=== PATIENT | male | born 1940 | race Caucasian/White ===

== ENCOUNTER 2016-11-27 12:59 | Emergency (ER) | payer OTHER, MEDICARE ==
[2016-11-27 13:13] VITALS: RESP 18
--- NOTE | 2016-11-27 14:59 | EDPHY ---
H & P Smoking Status: Light smoker Time Seen by Provider: 11/27/16 14:02 HPI/ROS: CHIEF COMPLAINT: left wrist pain HISTORY OF PRESENT ILLNESS: 76-year-old male presents emergency department complaining of left wrist pain. Patient slipped on the ice and fell on outstretched hand 1 week ago, he was seen by a another provider for his chronic back pain yesterday who told him he should have it checked out and get an x- ray. Patient reports pain of 4/10, worse with movement. He denies numbness or tingling to this hand, he is [id number]. He denies previous injury to this wrist. Patient denies head strike, no elbow pain or shoulder pain, and he denies other complaints. REVIEW OF SYSTEMS: A comprehensive 10 point review of systems is otherwise negative aside from elements mentioned in the history of present illness. (Carmita Johnson) Physical Exam: GEN: Awake, alert, oriented, no acute distress RESP: nl resp effort MSK: Left wrist with mild swelling, ecchymosis, diffuse tenderness to palpation , good radial motor and sensory, 2+ radial pulses, sensation intact to light touch, cap refill less than 2 seconds SKIN: No break in skin (Carmita Johnson) Constitutional: Initial Vital Signs Temperature (C) 36.8 C 11/27/16 13:09 Heart Rate 71 11/27/16 13:09 Respiratory Rate 18 11/27/16 13:09 Blood Pressure 100/76 11/27/16 13:09 O2 Sat (%) 93 11/27/16 13:09 O2 Delivery Mode Room Air Allergies/Adverse Reactions: No Allergies [NKA] Allergy (Verified 11/27/16 13:08) Home Medications: Medication Instructions Recorded Ascorbic Acid [Vitamin C 500 mg 500 mg PO DAILY16 09/18/15 (*)] Calcium Carbonate [Oyster Shell 500 mg PO DAILY16 09/18/15 Calcium 500 mg (*)] Cholecalciferol Vit D3 [Vitamin D3 1,000 units PO DAILY16 09/18/15 (*)] Cyanocobalamin [Vitamin B12 (*)] 100 mcg PO DAILY16 09/18/15 Gabapentin [Neurontin 100 MG (*)] 100 mg PO DAILY16 09/18/15 Herbals/Supplements -Info Only 1 ea PO DAILY16 09/18/15 Hydrochlorothiazide [HCTZ (*)] 25 mg PO DAILY16 09/18/15 Lisinopril [Zestril 40 mg (*)] 40 mg PO DAILY16 09/18/15 Metoprolol Succinate Xr [Toprol Xl 100 mg PO DAILY16 09/18/15 100 mg (*)] Omeprazole [Prilosec] 40 mg PO DAILY16 09/18/15 amLODIPine BESYLATE [Norvasc 5 mg 7.5 mg PO DAILY16 09/18/15 (*)] Amoxicillin/Clavulanate Pot 875 mg PO BID #14 tab 09/22/15 [Augmentin 875Mg] oxyCODONE/APAP 5/325 [Percocet 1 - 2 tab PO Q6H PRN #20 tab 10/02/15 5/325 (*)] MDM/Departure - MDM Diagnostics: Left wrist x-ray independently reviewed by me- Intra-articular comminuted left distal radius fracture with left ulnar styloid fx. (Carmita Johnson) Procedures: A volar Ortho Glass splint was applied. After application of the splint, I returned and re-examined the patient. The splint was adequately immobilizing the joint. The patients circulation and sensation were intact distal to the splint. (Carmita Johnson) ED Course/Re-evaluation: I did not see this patient while he was in the emergency department. However his care was discussed with the nurse practitioner while the patient was in the department. I agree with treatment plan and management (Chuck Chun) - Depart Disposition: Home, Routine, Self-Care Clinical Impression: Distal radius fracture, left Qualifiers: Encounter type: initial encounter Fracture type: closed Fracture morphology: other intra-articular Qualifier Code: (S52.572A) Other intraarticular fracture of lower end of left radius, initial encounter for closed fracture Fracture of ulnar styloid Qualifiers: Encounter type: initial encounter Fracture type: closed Fracture alignment: displaced Laterality: left Qualifier Code: (S52.612A) Displaced fracture of left ulna styloid process, initial encounter for closed fracture Condition: Good Instructions: Wrist Fracture in Adults (ED), Splint Care (ED) Additional Instructions: Rest, ice, elevate, take 650 mg of Tylenol every 6-8 hours as needed for pain for 3-5 days, call the orthopedist 1st thing Tuesday morning to schedule an appointment to be seen in the next 3-5 days. Return to the emergency department for any numbness or tingling to your hand, pain that is not controlled, any new symptoms or concerns. Referrals: Rohith Rahman MD [Medical Doctor] - As per Instructions (Orthopedist on-call)
--- NOTE | 2016-11-27 15:11 | DX ---
Left Wrist 4 Views including a Navicular View. Clinical Indications: Pain following trauma in a 76-year-old male who fell one week ago.. Findings: There is a comminuted and mildly displaced intra-articular fracture of the distal left radi us. There is an associated ulnar styloid fracture. Degenerative osteoarthritic changes are noted most severe at the base of the first metacarpal and involving the radiocarpal articulation. Diffuse osseo us demineralization is noted. Impression: Comminuted and mildly displaced intra-articular fracture of the left radius with associat ed ulnar styloid fracture.
[2016-11-27 15:15] VITALS: BP 106/78; PULSE 72; TEMP 97.9; O2SAT 94
== END 2016-11-27 15:15 | disposition home or self-care (01) ==
PROC: 2W3DX1Z Immobilization of Left Lower Arm using Splint (ICD-10-PCS; principal; 2016-11-27)
DX: S52.572A Other intraarticular fracture of lower end of left radius, initial encounter for closed fracture (principal); S52.612A Displaced fracture of left ulna styloid process, initial encounter for closed fracture; F17.200 Nicotine dependence, unspecified, uncomplicated; W00.0XXA Fall on same level due to ice and snow, initial encounter; Y93.89 Activity, other specified

== ENCOUNTER → 2016-12-05 | Outpatient (CLI) | payer OTHER, MEDICARE ==
--- NOTE | 2016-12-05 12:04 | DX ---
Right hip, 2 views. HISTORY: Right hip pain. COMPARISON STUDY: October 02, 2015 FINDINGS: Moderate right and severe left hip osteoarthritis appear similar to previous study. No fracture. Diffuse underlying osteopenia. IMPRESSION: 1. Moderate right and severe left hip osteoarthritis.
--- NOTE | 2016-12-05 14:12 | MR ---
MRI of the Lumbar Spine (Without Contrast) Clinical Indications: Low back pain. Technique: Sagittal and axial T1 and T2 MRI sequences of the lumbar spine without contrast. Comparison Examination: September 19, 2015. Findings: Moderate compression deformity of the superior endplate of the L2 vertebral body is new fro m prior examination, associated with subcortical bone marrow edema. Severe compression fracture of th e L4 vertebral body is again noted with progression of vertebral body height loss from prior study. N o additional new compression deformities identified. L1-L2: Disk desiccation and mild diffuse annular bulging without discrete disk prolapse or neural imp ingement. Moderate left neural foraminal stenosis. L2-L3: Disk desiccation and broad-based annular bulging without dominant disk herniation. Moderate le ft neural foraminal stenosis. L3-L4: Disk desiccation and broad-based annular bulging contributing to moderate acquired central can al stenosis. Neural foramina are also stenotic bilaterally, severely on the left and moderately on th e right. Moderate bilateral facet degenerative hypertrophy. L4-L5: Disk desiccation and annular bulging without discrete disk prolapse. Foramina appear stenotic bilaterally, minimally on the left and severely on the right. L5-S1: No disk herniation or stenosis. Impressions: 1. New moderate compression fracture of the superior endplate of the L2 vertebral body from 2014 with mild associated bone marrow edema. 2. Progressive collapse of severe L4 compression deformity. 3. Multilevel degenerative disk disease. Relatively severe right neural foraminal stenosis at L4-L5. Moderate acquired central canal stenosis at L3-L4 with bilateral neural foraminal stenosis.
== END ==
LOC: FIMAGING 10:50
PROVIDERS: ATTEND Physical Medicine & Rehabilitation
DX: M54.5 Low back pain (principal); S32.020A Wedge compression fracture of second lumbar vertebra, initial encounter for closed fracture; M51.36 Other intervertebral disc degeneration, lumbar region; M16.11 Unilateral primary osteoarthritis, right hip; M16.12 Unilateral primary osteoarthritis, left hip

== ENCOUNTER → 2017-01-29 | Outpatient (CLI) | payer OTHER, MEDICARE | LOC: FIMAGING 09:52 | PROVIDERS: ATTEND Physician Assistant Surgical | DX: M76.01 Gluteal tendinitis, right hip (principal); M24.151 Other articular cartilage disorders, right hip; M16.0 Bilateral primary osteoarthritis of hip; M48.56XA Collapsed vertebra, not elsewhere classified, lumbar region, initial encounter for fracture ==

== ENCOUNTER 2017-03-04 09:39 | Inpatient (IN) | payer OTHER, MEDICARE ==
--- NOTE | 2017-03-04 10:00 | EDPHY ---
H & P Stated Complaint: ROLLED OUT OF BED, L SIDED PAIN Source: Patient, EMS Exam Limitations: No limitations - Personal History Current Tetanus/Diphtheria Vaccine: Unsure - Medical/Surgical History Hx Asthma: No Hx Chronic Respiratory Disease: No Hx Diabetes: No Hx Cardiac Disease: Yes Hx Renal Disease: No Hx Cirrhosis: No Hx Alcoholism: Yes Hx HIV/AIDS: No Hx Splenectomy or Spleen Trauma: No Other PMH: PMH: HTN. PSH: - Social History Smoking Status: Current every day smoker Time Seen by Provider: 03/04/17 09:54 HPI/ROS: CHIEF COMPLAINT: fall out of bed HISTORY OF PRESENT ILLNESS: 76-year-old male presents emergency department by ambulance reporting last night around midnight he rolled out of his bed and was pinned between his bed and the wall laying on the edge of the metal bed frame. Patient reports his but was barely touching the ground and his back was wedged against the metal frame. Patient states he called for help for 8 hours when staff at the independent living facility heard him and called 911. Patient reports left-sided back pain and rib pain, pain with deep breaths. He denies chest pain, shortness of breath, abdominal pain. Patient has abrasions and hematoma to his left hand, denies pain with range of motion of hand or wrist. Patient states he urinated at home prior to coming to the emergency department without difficulty. He denies neck pain, no head strike. REVIEW OF SYSTEMS: A comprehensive 10 point review of systems is otherwise negative aside from elements mentioned in the history of present illness. (Carmita Johnson) - Physical Exam Exam: General Appearance: Alert, no distress, talking appropriately, comfortable. Head: Atraumatic without scalp tenderness or obvious injury, small abrasion to forehead Eyes: Pupils equal, round, reactive to light, EOMI, no trauma, no injection. Ears: Clear bilaterally, no perforation, no hemotympanum Nose: Atraumatic, no rhinorrhea, no septal hematoma Neck: The cervical spine is non-tender and there is no pain or neurologic deficits with active range of motion. Cardiovascular: Heart is regular rate and rhythm. Good capillary refill all extremities. Chest: Left lateral chest wall with ecchymosis and tenderness to palpation mid axillary Gastrointestinal: Soft, non-tender, non-distended. No rebound, guarding, or peritoneal signs. There is no evidence of external or internal trauma. Back:There is no midline thoracic or lumbar spine or paraspinal tenderness. Extremities: left forearm, wrist and hand with ecchymosis, multiple small skin tears. Full range of motion of wrist, 2+ radial pulses. Left lateral knee with ecchymosis, nontender, full range of motion, 2+ pedal pulses All extremities are non-tender to palpation without obvious deformity. There is full active range of motion of the joints. Neurological: The patient has normal DTRs and non-focal Cranial nerves, motor, sensory, and cerebellar exam Skin: Thin 1 cm wide area of erythema with intermittent areas of abrasion from left axilla to groin. Multiple small skin tears to left hand and forearm ( Carmita Johnson) Constitutional: Initial Vital Signs Temperature (C) 36.8 C 03/04/17 09:46 Heart Rate 74 03/04/17 09:46 Respiratory Rate 16 03/04/17 09:46 Blood Pressure 154/70 H 03/04/17 09:46 O2 Sat (%) 91 L 03/04/17 09:46 O2 Delivery Mode Room Air O2 (L/minute) 1 Allergies/Adverse Reactions: No Allergies [NKA] Allergy (Verified 11/27/16 13:08) Home Medications: Medication Instructions Recorded Ascorbic Acid [Vitamin C 500 mg 500 mg PO HS 09/18/15 (*)] Calcium Carbonate [Oyster Shell 500 mg PO HS 09/18/15 Calcium 500 mg (*)] Cholecalciferol Vit D3 [Vitamin D3 1,000 units PO HS 09/18/15 (*)] Cyanocobalamin [Vitamin B12 (*)] 100 mcg PO HS 09/18/15 Gabapentin [Neurontin 100 MG (*)] 100 mg PO HS 09/18/15 Hydrochlorothiazide [HCTZ (*)] 25 mg PO DAILY16 09/18/15 Lisinopril [Zestril 40 mg (*)] 40 mg PO HS 09/18/15 Metoprolol Succinate Xr [Toprol Xl 100 mg PO HS 09/18/15 100 mg (*)] Omeprazole [Prilosec] 40 mg PO HS 09/18/15 amLODIPine BESYLATE [Norvasc 5 mg 7.5 mg PO HS 09/18/15 (*)] Medical Decision Making - Diagnostics Imaging: I viewed and interpreted images myself ED Course/Re-evaluation: 76-year-old male presents emergency department by EMS after being wedged between his metal bed frame and the wall for 8 hours after rolling out of his bed last night. On arrival to the emergency department the patient is awake, alert and oriented, denies head strike, remembers the entire accident. He complains of left-sided rib pain, pain with movement, pain with deep breaths. IV established, CBC, chemistry panel, CPK, urinalysis and chest x-ray with left rib series ordered. 1 L of normal saline was given. Patient has a CPK of 680, CBC and electrolytes are unremarkable, creatinine is 0.9. Chest x-ray shows for nondisplaced left lateral rib fractures at 7 through 10. Patient will be admitted to the hospitalist for observation. Patient's room air oxygen saturation is 91%. Urinalysis is pending, we will trend his CPK. 1120am- trauma surgeon on-call Dr. Anita Ferguson was consulted. She will see the patient. (Carmita Johnson) Other Provider: This patient was evaluated and managed by the nurse practitioner. I have reviewed the chart and agree with the findings and plan of care as documented. I also interviewed and examined the patient. He has a history of alcohol abuse , ruled out of bed, and became pinned between furniture and the wall. He was essentially suspended for several hours. On examination he is awake and alert. Head is normocephalic atraumatic. Neck is nontender to palpation over the cervical spine. Thoracolumbar spine nontender to palpation. Has tenderness over the left anteromedial ribcage, no crepitus. Lung sounds are clear and equal bilaterally. Abdomen is soft and nontender. He has significant bruising throughout his body. He is moving all 4 extremities easily and equally. Sensation is intact to light touch. I reviewed laboratory studies. I agree with plan for admission. (Sahra Ingram) - Data Points Laboratory Results: Laboratory Results 03/04/17 09:51 03/04/17 09:51 Medications Given: Discontinued Medications Diphtheria/Tetanus/Acell Pertussis (Boostrix) 0.5 ml IM .ONCE ONE Stop: 03/04/17 10:52 Last Admin: 03/04/17 11:15 Dose: 0.5 ml Sodium Chloride (Ns) 1,000 mls @ 0 mls/hr IV ONCE ONE PRN Reason: Wide Open Stop: 03/04/17 10:51 Last Admin: 03/04/17 10:55 Dose: 1,000 mls Sodium Chloride (Ns) 1,000 mls @ 3,000 mls/hr IV ONCE ONE Stop: 03/04/17 12:37 Last Admin: 03/04/17 13:47 Dose: 1,000 mls Thiamine HCl 500 mg/ Sodium (Chloride) 105 mls @ 210 mls/hr IV DAILY BECCA Stop: 03/05/17 09:29 Last Admin: 03/05/17 08:22 Dose: 105 mls Morphine Sulfate (Morphine) 4 mg IVP EDNOW ONE Stop: 03/04/17 11:24 Last Admin: 03/04/17 13:32 Dose: Not Given Morphine Sulfate (Morphine) 4 mg IVP EDNOW ONE Stop: 03/04/17 11:24 Last Admin: 03/04/17 13:32 Dose: Not Given Departure - Departure Disposition: [facility] Inpatient Acute Clinical Impression: Elevated CK Multiple fractures of ribs of left side Qualifiers: Encounter type: initial encounter Fracture type: closed Qualified Code(s): S22.42XA - Multiple fractures of ribs, left side, initial encounter for closed fracture Condition: Fair
[2017-03-04 10:03] LABS: % IMMATURE GRANULYOCYTES 0.5 % (0.0-1.1); ABSOLUTE IMMATURE GRANULOCYTES 0.05 10^3/uL (0.00-0.10); ADD DIFF? NO; ADD MORPH? NO; ADD SCAN? NO; ATYPICAL LYMPHOCYTE FLAG 0 (0-99); FRAGMENT RBC FLAG 0 (0-99); HEMATOCRIT 44.4 % (40.0-51.0); HEMOGLOBIN 15.3 g/dL (13.7-17.5); LEFT SHIFT FLG 0 (0-99); LIPEMIA HEMOLYSIS FLAG 90 (0-99); MEAN CELL HEMOGLOBIN 34.7 pg (27.9-34.1); MEAN CELL HEMOGLOBIN CONCENTR. 34.5 g/dL (32.4-36.7); MEAN CELL VOLUME 100.7 fL (81.5-99.8); MEAN PLATELET VOLUME 9.4 fL (8.7-11.7); PLATELET CLUMPS FLAG 0 (0-99); PLATELET COUNT 128 10^3/uL (150-400); RED BLOOD CELL COUNT 4.41 10^6/uL (4.40-6.38); RED CELL DISTRIBUTION WIDTH 14.7 % (11.5-15.2)
[2017-03-04] MEDS ORDERED: NS 1,000 ML IV ONE ×2 (10:50→12:18)
[2017-03-04] MEDS ORDERED: TDAP ADULT 0.5 ML INJ (BOOSTRIX) IM ONE (10:51)
[2017-03-04 11:13] LABS: ANION GAP 13 mEq/L (8-16); CALCIUM 9.4 mg/dL (8.5-10.4); CARBON DIOXIDE 21 mEq/l (22-31); CHLORIDE 103 mEq/L (97-110); CREATININE 0.9 mg/dL (0.7-1.3); GLOMERULAR FILTRATION RATE > 60; GLUCOSE 89 mg/dL (70-100); POTASSIUM 4.3 mEq/L (3.5-5.2); SODIUM 137 mEq/L (134-144)
[2017-03-04 11:22] LABS: CK-MB INTERPRETATION NEGATIVE (NEGATIVE); CREATINE KINASE-MB FRACTION 5.39 ng/mL (0-3.19)
[2017-03-04 11:23] LABS: COLOR YELLOW; LEUKOCYTE ESTERASE,URINE NEGATIVE (NEGATIVE); NITRITE,URINE NEGATIVE (NEGATIVE)
[2017-03-04 11:28] LABS: MUCUS TRACE /lpf (NONE-1+)
[2017-03-04 11:29] LABS: WBC,URINE NONE SEEN /hpf (0-3)
[2017-03-04] MEDS ORDERED: ONDANSETRON 4 MG/2 ML VIAL IVP PRN (12:35)
[2017-03-04] MEDS ORDERED: ALBUTEROL 3 ML DEYVIAL IH PRN (12:35)
[2017-03-04] MEDS ORDERED: ONDANSETRON DISINTEGRATING 4 MG TAB PO PRN (12:35)
[2017-03-04] MEDS ORDERED: ACETAMINOPHEN 325 MG TAB PO PRN (12:35)
[2017-03-04] MEDS ORDERED: NS 1,000 ML IV SCH (12:45)
--- NOTE | 2017-03-04 13:04 | GCON ---
[f rep st] CONSULTATION REFERRING PHYSICIAN: Sahra Ingram MD CHIEF COMPLAINT: Fall. HISTORY OF PRESENT ILLNESS: The patient is a 76-year-old man who normally drinks a bottle and a latrice f of wine prior to going to bed. Last night, he fell asleep and rolled over and was pinned between the bed and the window sill. He never actually fell, however, he was entrapped and was unable to ge t himself out. He periodically called for help and approximately 8 hours later a neighbor heard him and EMS was called. He does not remember rolling into the position as he was sleeping when this willoughby ppened. He denies any issues with alcohol withdrawal. He is not interested in alcohol cessation. PAST MEDICAL HISTORY: Neuropathy. PAST SURGICAL HISTORY: Eye surgery, lens replacement and amputation of toe due to osteomyelitis. MEDICATIONS: Reviewed in [employer]. ALLERGIES: No known drug allergies. SOCIAL HISTORY: He lives at home alone. He smokes 1/2 pack of cigarettes a day x50 years. He drin ks approximately a bottle and a half of red wine per night. He works in telephone sales. FAMILY HISTORY: His father had CHF and possible thyroid cancer. His mother had dementia. REVIEW OF SYSTEMS: He bruises easily. He is unstable. He does complain of some hearing loss and s ome difficulty with vision. Otherwise, 10-point review of systems negative. PHYSICAL EXAMINATION: VITALS: Reviewed and stable. GENERAL: A pleasant man sitting up in bed. H e is well nourished and well groomed. HEENT: Normocephalic. No gross hearing deficit. His pupils are equal, round, reactive to light and accommodation. No midface instability. He has poor dentit ion and there are no intraoral lesions. There is no otorrhea and no rhinorrhea. NECK: No cervical spine tenderness. LUNGS: Clear to auscultation bilaterally. He is tender on the left chest. The re is no distinct ecchymosis. CARDIAC: Regular rate. ABDOMEN: Bowel sounds present. Soft, nonte nder. MUSCULOSKELETAL: 5/5 strength upper and lower extremities. NEURO: Cranial nerves 2-12 gurmeet sly intact. SKIN: He has multiple ecchymotic lesions over his arm. He does have some ecchymosis o n his left knee. RESULTS REVIEWED: I reviewed the results of his chest x-ray and he had 4 rib fractures that are non displaced on the left side without pneumothorax. His CK is also elevated. IMPRESSION AND PLAN: The patient is a 76-year-old man who sustained 4 rib fractures and was pinned between his bed and the window sill last night. He will receive IV hydration. He is not interested in alcohol cessation and so he will be drinking alcohol during the hospital stay. Pulmonary toilet . Physical therapy, occupational therapy, speech language therapy have been ordered. He normally u ses a cane for assistance at home. Trauma will continue to follow. Repeat chest x-ray tomorrow to make sure that there has not been a development of a hemo or pneumothorax. /[id number]/MODL
--- NOTE | 2017-03-04 13:44 | CPEKG ---
Heart Rate: 63 RR Interval: 952 P-R Interval: 188 QRSD Interval: 100 QT Interval: 436 QTC Interval: 447 P [place]: 56 QRS [place]: 96 T Wave [place]: 15 EKG Severity - OTHERWISE NORMAL ECG - EKG Impression: SINUS RHYTHM EKG Impression: RIGHT AXIS DEVIATION Electronically Signed By: Hernandez Mckeon 05-Mar-2017 10:37:53
[2017-03-04] MEDS: THIAMINE HCL 500 MG in NS 100 ML IV SCH (13:46)
[2017-03-04] MEDS: LIDOCAINE 5% 1 EA PATCH TD SCH (13:48)
--- NOTE | 2017-03-04 13:49 | GHP ---
[f rep st] HISTORY AND PHYSICAL DATE OF ADMISSION: 03/04/2017 CHIEF COMPLAINT: Rolled out of his bed and was stuck. HISTORY OF PRESENT ILLNESS: The patient is a 76-year-old male with a history of peripheral neuropathy, hypertension, and significant alcohol use, who was brought to the emergency department via ambulance after he rolled out of his bed and was pinned between his bed and the wall, lying on the edge of his metal bed frame. Prior to going to bed at night, he had approximately a bottle and a half of white wine. He rolled off the bed and got wedged in a space where he could not get out. He was there for approximately 8 hours. He yelled for help. His neighbor called the facility management, who subsequently called EMT. On admission to the emergency room, he reported that he had some left- sided back pain as well as rib pain, pain with deep breaths. He denies any chest pain, shortness of breath, abdominal pain. He had a chest x-ray performed in the emergency room, which noted nondisplaced fractures of the antral lateral left 7th through 10th ribs with associated atelectasis suspected at the left base. During my interview, he is overall feeling fine. He prefers not to get out of bed due to the rib fractures. He has had no significant changes in his vision, some loss in his hearing. His weight overall has remained stable. No difficulty with urination or constipation. PAST MEDICAL HISTORY: 1. Peripheral neuropathy. 2. Hypertension. 3. Macular degeneration. 4. GERD. 5. Osteomyelitis of right 2nd toe. 6. Compression fracture of L4. 7. 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 8. Chronic hyponatremia. 9. Normocytic anemia. PAST SURGICAL HISTORY: 1. Partial amputation of 2nd right toe due to osteomyelitis. 2. Cataract surgery. 3. Lens replacement. SOCIAL HISTORY: He has been a smoker for 50 years and smokes half a pack a day. He drinks alcohol daily. He has never had any signs or symptoms of alcohol withdrawal or any type of seizures. He lives alone. He works in telephone sales. When I asked him why he drinks so much wine, he said because he likes the flavor of it. FAMILY HISTORY: Parents are . His father had complications of heart failure and thyroid cancer. His mother had dementia. ALLERGIES: No known allergies. HOME MEDICATIONS: Have not been reconciled yet, but in the computer it is noted that he takes Percocet 1-2 tabs q.4 hours p.r.n., Norvasc 7.5 mg daily, Prilosec 40 mg daily, Toprol-XL 100 mg daily, lisinopril 40 mg daily, hydrochlorothiazide 25 mg daily, herbal supplements 1 tab daily, Neurontin 100 mg daily, vitamin B12 1000 mcg daily, vitamin D3 1000 units daily, calcium 500 mg daily, vitamin C 500 mg daily. REVIEW OF SYSTEM: A 10-point review of systems was performed, was negative other than pertinent positives in HPI and past medical history. PHYSICAL EXAM: GENERAL: The patient is a 76-year-old male who appears in very poor health. VITAL SIGNS: Blood pressure is 129/80, heart rate is 64, respiratory rate is 16, O2 saturation on room air 98%, temperature is 36.8 Celsius. HEENT: Eyes: Pupils are equal and reactive. EOMs are intact. ENT: He has normal ears, hearing intact. He has poor dentition. Oral airway is very dry. NECK: Trachea is midline. CARDIOVASCULAR: He has a regular rate and rhythm. No murmurs, rubs, or gallops are appreciated. CHEST: He has normal respiratory effort, but very diminished from the mid left lobe down. ABDOMEN: Soft, nontender. No rebound or guarding. SKIN: Evaluated his back. There are no skin breakdowns. On his extremities, his left forearm, wrist and hand with multiple skin tears and ecchymosis, with good range of motion. His left lateral knee area has ecchymosis and a small skin tear. He has multiple discolorations on both arms. MUSCULOSKELETAL: He has equal upper extremity strength. NEUROLOGIC: Alert and oriented to person, place, time, and situation. Cranial nerves are intact. PSYCHIATRIC: He appears to have normal judgment, insight, and normal memory. The patient was seen and evaluated with trauma surgeon, Dr. Ferguson. LABORATORY DATA: A CBC was performed, white blood cell count is 10.12, hemoglobin 15.3, hematocrit of 44.4, MCV 100.7, platelet count of 128. Chemistry shows a sodium of 137, potassium 4.3, chloride of 103, CO2 of 21, BUN of 13, creatinine 0.9. CPK 689. Urinalysis shows trace ketones and 2+ blood. IMAGING: Chest x-ray was performed, which noted a nondisplaced fracture antral lateral left 7th through 10th ribs, with associated atelectasis at the left base. ASSESSMENT/PLAN: 1. Mild rhabdomyolysis: Patient looks clinically dry. Will hydrate him overnight and monitor his kidney function closely. 2. Nondisplaced left rib fractures 7 through 10. Is at risk for pneumonia. Will have him do the IS hourly. Will order nebulizer treatments. Will encourage mobility. 3. Multiple abrasions on his left groin, left knee area, and the left hand. Will ask for a Wound Care consult. 4. Alcohol use and abuse: The patient denies any seizures or withdrawal symptoms. He does not wish to abstain from alcohol and is asking for it at this time. Will order it for lunch and dinner. In addition, we will place him on IV thiamine for the next 2 days, and then oral thiamine. Will initiate folic acid, and a multivitamin. Monitor for any signs or symptoms of withdrawal. 5. Nicotine dependence: He prefers no nicotine patch. 6. Thrombocytopenia, secondary to his alcohol use. Will monitor. 7. DVT prophylaxis: High risk. Will place him on low molecular weight heparin , as well as knee high JOSEFINA hose. 8. Code status: He would like CPR and no intubation. 9. Length of stay: He will require likely greater than a 2 midnight stay due to the above. /[id number]/MODL MTDD
[2017-03-04] MEDS: FOLIC ACID 1 MG TAB PO SCH (13:50)
[2017-03-04] MEDS: WHITE WINE 120 ML BOTTLE PO SCH ×2 (13:57→18:15)
[2017-03-04] MEDS: IPRATROPIUM/ALBUTEROL 3 ML DEYVIAL IH SCH ×2 (15:54→20:31)
--- NOTE | 2017-03-04 17:38 | WOCRNPDOC ---
NADER Advanced Assessment Note - Skin Integrity Problem, Advanced Assess Left Flank Pressure Injury Dressing Type: Open to Air Exudate Amount: None Analilia Wound Tissue: Erythema, Non-blanching Analilia Wound Swelling: Moderate Wound Bed Color: Black, [place], Purple, Yellow Wound Bed Constitution: Smooth Tissue Wound Edges: Attached Site Odor: None Site Measurement - Head-to-Toe Length X Width X Depth (cm): 41x1x0.3 (DTI) with a larger area of stage 1 (15 cm wide) surrounding the DTI. Pressure Injury Stage: Deep Tissue Injury (DTI) (Device related) Pressure Injury Present on Admit: Yes Skin Integrity Problem Comment: Patient found down at home and this portion of his abdomen and chest were pinned against the metal frame of his bed. This is wound is already evolving and the middle is begining to necrose and will evolve into an open wound. The tissue on the superior and inferior edges are less damaged and should resolve without opening as they are Stage 1. Advised patient follow up at the wound healing center for management of this wound post discharge. Wound care will round again on 03/08. Left Lateral Knee Pressure Injury Dressing Type: Open to Air Site Measurement - Head-to-Toe Length X Width X Depth (cm): [id number] Pressure Injury Stage: Stage 1 (Device related) Pressure Injury Present on Admit: Yes Skin Integrity Problem Comment: Tissue mildly swollen. Intact, non blanching. Wound developed as a result of ischemia due to his position for 8 hours. Left Lateral Elbow Pressure Injury Dressing Type: Open to Air Site Measurement - Head-to-Toe Length X Width X Depth (cm): 4x5x0 Pressure Injury Stage: Deep Tissue Injury (DTI) (Device related) Pressure Injury Present on Admit: Yes Skin Integrity Problem Comment: Pressure injury from position while "down". Right Sacrum Pressure Injury Dressing Type: Open to Air Site Measurement - Head-to-Toe Length X Width X Depth (cm): 1x1x0 Pressure Injury Stage: Stage 1 Pressure Injury Present on Admit: Yes Left Lateral Ankle Pressure Injury Dressing Type: Open to Air Site Measurement - Head-to-Toe Length X Width X Depth (cm): 1x1.8x0 Pressure Injury Stage: Deep Tissue Injury (DTI) Skin Integrity Problem Comment: Pressure injury likely also from position when pinned beside bed at home. Bilateral heels blanching. No pressure wound on head/ neck.
[2017-03-04 20:19] LABS: CK-MB INTERPRETATION NEGATIVE (NEGATIVE)
[2017-03-04 20:20] LABS: CREATINE KINASE-MB FRACTION 4.15 ng/mL (0-3.19)
[2017-03-04] MEDS: CHOLECALCIFEROL VIT D3 1,000 UNITS TAB PO SCH (20:57)
[2017-03-04] MEDS: CALCIUM CARBONATE 500 MG TAB PO SCH (20:57)
[2017-03-04] MEDS: CYANO/VITAMIN B12 100 MCG TAB PO SCH (20:58)
[2017-03-04] MEDS: ASCORBIC ACID 500 MG TAB PO SCH (20:58)
[2017-03-04] MEDS: LISINOPRIL 40 MG TAB PO SCH (20:58)
[2017-03-04] MEDS: GABAPENTIN 100 MG CAP PO SCH (20:58)
[2017-03-04] MEDS: METOPROLOL SUCCINATE XR 100 MG TAB PO SCH (20:58)
[2017-03-04] MEDS: amLODIPine BESYLATE 5 MG TAB PO SCH (20:59)
[2017-03-04] MEDS ORDERED: NON-FORMULARY NEW DRUG (Omeprazole [Prilosec] 40 MG) PO SCH (21:00)
[2017-03-04] MEDS: PATCH REMOVAL 1 EA PATCH TD SCH (21:57)
[2017-03-05 05:35] LABS: % IMMATURE GRANULYOCYTES 0.3 % (0.0-1.1); ABSOLUTE IMMATURE GRANULOCYTES 0.02 10^3/uL (0.00-0.10); ADD DIFF? NO; ADD MORPH? NO; ADD SCAN? NO; ATYPICAL LYMPHOCYTE FLAG 0 (0-99); FRAGMENT RBC FLAG 0 (0-99); HEMATOCRIT 36.7 % (40.0-51.0); HEMOGLOBIN 12.3 g/dL (13.7-17.5); LEFT SHIFT FLG 0 (0-99); LIPEMIA HEMOLYSIS FLAG 80 (0-99); MEAN CELL HEMOGLOBIN 34.7 pg (27.9-34.1); MEAN CELL HEMOGLOBIN CONCENTR. 33.5 g/dL (32.4-36.7); MEAN CELL VOLUME 103.7 fL (81.5-99.8); MEAN PLATELET VOLUME 9.9 fL (8.7-11.7); PLATELET CLUMPS FLAG 0 (0-99); PLATELET COUNT 91 10^3/uL (150-400); RED BLOOD CELL COUNT 3.54 10^6/uL (4.40-6.38); RED CELL DISTRIBUTION WIDTH 14.8 % (11.5-15.2)
[2017-03-05 05:53] LABS: ALANINE AMINOTRANSFERASE 36 IU/L (21-72); ALBUMIN 2.3 g/dL (3.5-5.0); ALKALINE PHOSPHATASE 53 IU/L (38-126); ANION GAP 1 mEq/L (8-16); ASPARTATE AMINOTRANSFERASE 42 IU/L (17-59); BILIRUBIN,TOTAL 0.9 mg/dL (0.1-1.4); CALCIUM 8.4 mg/dL (8.5-10.4); CARBON DIOXIDE 28 mEq/l (22-31); CHLORIDE 107 mEq/L (97-110); CREATININE 0.7 mg/dL (0.7-1.3); GLOMERULAR FILTRATION RATE > 60; GLUCOSE 94 mg/dL (70-100); MAGNESIUM 1.4 mg/dL (1.6-2.3); POTASSIUM 4.1 mEq/L (3.5-5.2); SODIUM 136 mEq/L (134-144); TOTAL PROTEIN 4.6 g/dL (6.3-8.2)
[2017-03-05 05:59] LABS: CREATINE KINASE-MB FRACTION 2.16 ng/mL (0-3.19)
[2017-03-05] MEDS: IPRATROPIUM/ALBUTEROL 3 ML DEYVIAL IH SCH ×4 (06:03→23:06)
[2017-03-05 06:35] LABS: CK-MB INTERPRETATION NEGATIVE (NEGATIVE)
[2017-03-05] MEDS: FOLIC ACID 1 MG TAB PO SCH (08:22)
[2017-03-05] MEDS: THIAMINE HCL 500 MG in NS 100 ML IV SCH (08:22)
[2017-03-05] MEDS: MULTIVITAMINS 1 EACH TAB PO SCH (08:22)
[2017-03-05] MEDS: LIDOCAINE 5% 1 EA PATCH TD SCH (08:23)
[2017-03-05] MEDS: ENOXAPARIN 40 MG/0.4 ML SYR SC SCH ×2 (08:24→16:26)
--- NOTE | 2017-03-05 11:17 | HOSPPROG ---
Hospitalist Progress Note Assessment/Plan: DIAGNOSES: -Gait instability, multifactorial -Acute rhabdomyolysis from pressure -Complex mix of pressure skin skin soft tissue injuries along with abrasions and ecchymoses along the left side of his body and in the groin area -Acute alcohol intoxication -Suspected vitamin deficiencies in this patient is clearly with moderate malnutrition -Alcoholism -COPD PLANS: -continue wound care -Continue fall risk precautions and physical occupational therapy -Thiamin replacement -Monitor for potential alcohol withdrawal -I spent some time with the patient today counseling him on the acute chronic affects of alcohol on his body and his life in general and recommended that he do what he can to cut back though he is not willing to commit quitting at this time - DVT prophylaxis SUBJECTIVE: still quite sore particularly on the left side of his chest and left abdominal wall No nausea, is eating well No respiratory symptoms Did ambulate with therapist today, does have some gait instability and needs assistance for ambulation OBJECTIVE Vitals reviewed: stable without fever Exam: alert oriented No signs of alcohol withdrawal syndrome skin warm dry color ok; there is no sign of infection at any of his acute skin lesions or wounds resps not labored lungs clear BSs heart regular abd soft nondistended nontender, bowel sounds present limbs warm, no edema iv site ok Objective: Vital Signs Temp Pulse Resp BP Pulse Ox 36.9 C 76 17 149/91 H 96 03/05/17 07:50 03/05/17 07:50 03/05/17 07:50 03/05/17 07:50 03/05/17 07:50 Laboratory Results 03/05/17 05:03 03/05/17 05:03 03/04/17 03/05/17 03/06/17 06:59 06:59 06:59 Intake Total 0555 Output Total 175 150 Balance 2700 -150 ICD10 Worksheet Patient Problems: Problems Problem Status Onset Elevated CK Acute Multiple fractures of ribs of left side Acute Osteomyelitis Acute
--- NOTE | 2017-03-05 13:03 | TRAUMAPN ---
Assessment/Plan: 76yo M HD#2 s/p fall where he was trapped for 8 hours c L sided soft tissue injury and associated rib fx - Neuro: pain controlled. Neuro intact - Pulm: de-sats on RA. L chest tender but appropriate. Didnt want to use the IS with me today as it is "too big" Needs aggressive pulm toilet. - CV: HDS - Abd: soft, ND, nontender. Reg diet, tolerating well - Renal: voiding, UOP adequate. CK trending down. Will cont to trend - Dispo: PT/OT, EtOH counseling. Rib fracture protocol. Aggressive IS. Subjective: Pain controlled. Doesnt want to use his IS Objective: Vital Signs Temp Pulse Resp BP Pulse Ox 36.9 C 76 17 149/91 H 96 03/05/17 07:50 03/05/17 07:50 03/05/17 07:50 03/05/17 07:50 03/05/17 07:50 Laboratory Results 03/05/17 05:03 03/05/17 05:03 03/04/17 03/05/17 03/06/17 05:59 05:59 05:59 Intake Total 2875 Output Total 175 150 Balance 2700 -150 - C-Spine Clearance Cervical Spine Cleared: Yes Physical Exam - Physical Exam General Appearance: WD/WN, alert, no apparent distress EENT: PERRL/EOMI Neck: non-tender, full range of motion Respiratory: other (L chest tender, no crepitus. Adequate air movement with respirations ) Cardiac/Chest: normal peripheral pulses, regular rate, rhythm Abdomen: normal bowel sounds, non-tender
[2017-03-05] MEDS: WHITE WINE 120 ML BOTTLE PO SCH ×2 (13:43→18:00)
[2017-03-05] MEDS: PANTOPRAZOLE SODIUM 40 MG TAB PO SCH ×2 (13:43→19:57)
[2017-03-05] MEDS: METOPROLOL SUCCINATE XR 100 MG TAB PO SCH (19:58)
[2017-03-05] MEDS: GABAPENTIN 100 MG CAP PO SCH (19:58)
[2017-03-05] MEDS: CHOLECALCIFEROL VIT D3 1,000 UNITS TAB PO SCH (19:58)
[2017-03-05] MEDS: CALCIUM CARBONATE 500 MG TAB PO SCH (19:58)
[2017-03-05] MEDS: amLODIPine BESYLATE 5 MG TAB PO SCH (19:59)
[2017-03-05] MEDS: LISINOPRIL 40 MG TAB PO SCH (19:59)
[2017-03-05] MEDS: ASCORBIC ACID 500 MG TAB PO SCH (19:59)
[2017-03-05] MEDS: CYANO/VITAMIN B12 100 MCG TAB PO SCH (19:59)
[2017-03-05] MEDS: PATCH REMOVAL 1 EA PATCH TD SCH (20:01)
[2017-03-06] MEDS: IPRATROPIUM/ALBUTEROL 3 ML DEYVIAL IH SCH ×4 (05:25→19:28)
--- NOTE | 2017-03-06 08:56 | SOAPPROG ---
SOAP Progress Note Assessment/Plan: Assessment: Plan: Subjective: vss, af labs all ok, hct down, but doesn't appear to be bleeding anywhere lungs clear. no need to follow cpk's [place]. discharge when functioning independantly- pt lives at home by himself. Objective: Vital Signs Temp Pulse Resp BP Pulse Ox 36.8 C 57 L 16 137/83 H 95 03/06/17 08:00 03/06/17 08:00 03/06/17 08:00 03/06/17 08:00 03/06/17 08:00 Laboratory Results 03/05/17 05:03 03/05/17 05:03 03/05/17 03/06/17 03/07/17 05:59 05:59 05:59 Intake Total 2875 1750 Output Total 175 1330 150 Balance 2700 420 -150 ICD10 Worksheet Patient Problems: Problems Problem Status Onset Elevated CK Acute Multiple fractures of ribs of left side Acute Osteomyelitis Acute
[2017-03-06] MEDS: ENOXAPARIN 40 MG/0.4 ML SYR SC SCH (09:40)
[2017-03-06] MEDS: FOLIC ACID 1 MG TAB PO SCH (09:41)
[2017-03-06] MEDS: THIAMINE HCL 100 MG TAB PO SCH (09:41)
[2017-03-06] MEDS: MULTIVITAMINS 1 EACH TAB PO SCH (09:41)
[2017-03-06] MEDS: LIDOCAINE 5% 1 EA PATCH TD SCH (09:42)
[2017-03-06] MEDS: WHITE WINE 120 ML BOTTLE PO SCH ×2 (10:11→18:20)
--- NOTE | 2017-03-06 10:18 | HOSPPROG ---
Hospitalist Progress Note Assessment/Plan: DIAGNOSES: -Gait instability, multifactorial, with alcohol and nutrition affects and generalized weakness and deconditioning prominent -Acute rhabdomyolysis from pressure -Complex mix of pressure skin skin soft tissue injuries along with abrasions and ecchymoses along the left side of his body and in the groin area -Acute alcohol intoxication -Suspected vitamin deficiencies in this patient is clearly with moderate malnutrition -Alcoholism, Unwilling to consider stopping alcohol -COPD He is getting up to walk but is extremely weak and unable to sit up by himself. He requires assistance and walker for walking. He is eating little and sleeping quite a bit. Need to get him up into the chair more and walking more today. There is no sign of alcohol withdrawal PLANS: -continue wound care -Continue fall risk precautions and physical occupational therapy -Thiamin replacement -Monitor for potential alcohol withdrawal - DVT prophylaxis SUBJECTIVE: Less painful today Still quite weak and unable to get up from a supine position without assistance. Eating OBJECTIVE Vitals reviewed: stable without fever Exam: alert oriented No tremor confusion No focal weakness No signs of alcohol withdrawal syndrome skin warm dry color ok; no sign of infection at any of his acute skin lesions or wounds resps not labored lungs clear BSs heart regular abd soft nondistended nontender, bowel sounds present limbs warm, no edema iv site ok Objective: Vital Signs Temp Pulse Resp BP Pulse Ox 36.8 C 57 L 16 137/83 H 95 03/06/17 08:00 03/06/17 08:00 03/06/17 08:00 03/06/17 08:00 03/06/17 08:00 Laboratory Results 03/05/17 05:03 03/05/17 05:03 03/05/17 03/06/17 03/07/17 06:59 06:59 06:59 Intake Total 2875 1750 Output Total 175 1330 150 Balance 2700 420 -150 ICD10 Worksheet Patient Problems: Problems Problem Status Onset Elevated CK Acute Multiple fractures of ribs of left side Acute Osteomyelitis Acute
[2017-03-06] MEDS: CHOLECALCIFEROL VIT D3 1,000 UNITS TAB PO SCH (21:18)
[2017-03-06] MEDS: amLODIPine BESYLATE 5 MG TAB PO SCH (21:18)
[2017-03-06] MEDS: ASCORBIC ACID 500 MG TAB PO SCH (21:19)
[2017-03-06] MEDS: CYANO/VITAMIN B12 100 MCG TAB PO SCH (21:19)
[2017-03-06] MEDS: CALCIUM CARBONATE 500 MG TAB PO SCH (21:19)
[2017-03-06] MEDS: PANTOPRAZOLE SODIUM 40 MG TAB PO SCH (21:19)
[2017-03-06] MEDS: GABAPENTIN 100 MG CAP PO SCH (21:20)
[2017-03-06] MEDS: METOPROLOL SUCCINATE XR 100 MG TAB PO SCH (21:20)
[2017-03-06] MEDS: LISINOPRIL 40 MG TAB PO SCH (21:20)
[2017-03-06] MEDS: PATCH REMOVAL 1 EA PATCH TD SCH (21:21)
[2017-03-07] MEDS: IPRATROPIUM/ALBUTEROL 3 ML DEYVIAL IH SCH ×4 (05:09→21:09)
[2017-03-07] MEDS: THIAMINE HCL 100 MG TAB PO SCH (08:27)
[2017-03-07] MEDS: MULTIVITAMINS 1 EACH TAB PO SCH (08:27)
[2017-03-07] MEDS: ENOXAPARIN 40 MG/0.4 ML SYR SC SCH (08:27)
[2017-03-07] MEDS: FOLIC ACID 1 MG TAB PO SCH (08:27)
[2017-03-07] MEDS: LIDOCAINE 5% 1 EA PATCH TD SCH (08:29)
--- NOTE | 2017-03-07 08:45 | SOAPPROG ---
SOAP Progress Note Assessment/Plan: Assessment/Plan: 76 Y M EtOH, stuck btwn bed and wall x 7-8 hours. Rhabdomyolysis. Deconditioned. Multiple abrasions and contusions. CK improving. Renal function ok. Continue PT/OT. Seen and examined with Dr. Capone. S: No new complaints/aches/pains. O: gen: alert nad no wob, good fremitus rrr abd soft ext wwp, +ecchymosis. 03/07/17 08:40 Objective: Vital Signs Temp Pulse Resp BP Pulse Ox 36.6 C 55 L 16 152/88 H 92 03/07/17 07:50 03/07/17 07:50 03/07/17 07:50 03/07/17 07:50 03/07/17 07:50 Laboratory Results 03/05/17 05:03 03/05/17 05:03 03/06/17 03/07/17 03/08/17 05:59 05:59 05:59 Intake Total 1750 Output Total 1330 690 150 Balance 670 -006 -150 ICD10 Worksheet Patient Problems: Problems Problem Status Onset Elevated CK Acute Multiple fractures of ribs of left side Acute Osteomyelitis Acute
[2017-03-07] MEDS: WHITE WINE 120 ML BOTTLE PO SCH ×2 (09:30→17:32)
--- NOTE | 2017-03-07 10:52 | SOAPPROG ---
SOAP Progress Note Assessment/Plan: Assessment: alert/ stable/ doing ok/ afebrile sp multiple rib fxs bs equal/ cxr stable yesterday abd soft/ no new sx Plan:continue per IM plans/ placement issues ? 03/07/17 10:50 Objective: Vital Signs Temp Pulse Resp BP Pulse Ox 36.6 C 62 12 152/88 H 96 03/07/17 07:50 03/07/17 10:41 03/07/17 10:41 03/07/17 07:50 03/07/17 10:41 Laboratory Results 03/05/17 05:03 03/05/17 05:03 03/06/17 03/07/17 03/08/17 05:59 05:59 05:59 Intake Total 1750 250 Output Total 1330 690 400 Balance 420 -951 -150 ICD10 Worksheet Patient Problems: Problems Problem Status Onset Elevated CK Acute Multiple fractures of ribs of left side Acute Osteomyelitis Acute
--- NOTE | 2017-03-07 13:27 | HOSPPROG ---
Hospitalist Progress Note Assessment/Plan: DIAGNOSES: -Gait instability, multifactorial, with alcohol and nutrition affects and generalized weakness and deconditioning prominent -Acute rhabdomyolysis from pressure -Complex mix of pressure skin skin soft tissue injuries along with abrasions and ecchymoses along the left side of his body and in the groin area -Acute alcohol intoxication -Suspected vitamin deficiencies in this patient is clearly with moderate malnutrition -Alcoholism, Unwilling to consider stopping alcohol -COPD I discussed his situation at length with him. He is unsteady enough that I think another day here would be useful in terms of his safety. I have recommended either home PT OT or going to our fall prevention program, and he is quite reluctant to consider these or any other similar measures despite my efforts to sway him. I also discussed the impact of alcohol on his balance and his risks of injury from future falls. He is not at all willing to consider stopping or curtailing alcohol use at this time. PLANS: -continue wound care -Continue fall risk precautions and physical / occupational therapy -Thiamin replacement -DVT prophylaxis SUBJECTIVE: feels a bit stronger, still with significant balance issues walking but getting closer to his baseline which involves some instability of gait; did better w transfers today eating ok OBJECTIVE Vitals reviewed: stable without fever Exam: alert oriented No tremor confusion No focal weakness No signs of alcohol withdrawal syndrome skin warm dry color ok; no sign of infection at any of his acute skin lesions or wounds resps not labored lungs clear BSs heart regular abd soft nondistended nontender, bowel sounds present limbs warm, no edema iv site ok Objective: Vital Signs Temp Pulse Resp BP Pulse Ox 36.6 C 62 12 152/88 H 96 03/07/17 07:50 03/07/17 10:41 03/07/17 10:41 03/07/17 07:50 03/07/17 10:41 Laboratory Results 03/05/17 05:03 03/05/17 05:03 03/06/17 03/07/17 03/08/17 06:59 06:59 06:59 Intake Total 1750 250 Output Total 1330 690 400 Balance 078 -362 -075 ICD10 Worksheet Patient Problems: Problems Problem Status Onset Elevated CK Acute Multiple fractures of ribs of left side Acute Osteomyelitis Acute
[2017-03-07] MEDS: GABAPENTIN 100 MG CAP PO SCH (20:50)
[2017-03-07] MEDS: PANTOPRAZOLE SODIUM 40 MG TAB PO SCH (20:50)
[2017-03-07] MEDS: CHOLECALCIFEROL VIT D3 1,000 UNITS TAB PO SCH (20:51)
[2017-03-07] MEDS: CYANO/VITAMIN B12 100 MCG TAB PO SCH (20:51)
[2017-03-07] MEDS: amLODIPine BESYLATE 5 MG TAB PO SCH (20:51)
[2017-03-07] MEDS: CALCIUM CARBONATE 500 MG TAB PO SCH (20:52)
[2017-03-07] MEDS: LISINOPRIL 40 MG TAB PO SCH (20:52)
[2017-03-07] MEDS: METOPROLOL SUCCINATE XR 100 MG TAB PO SCH (20:52)
[2017-03-07] MEDS: ASCORBIC ACID 500 MG TAB PO SCH (20:52)
[2017-03-07] MEDS: PATCH REMOVAL 1 EA PATCH TD SCH (20:56)
[2017-03-08 00:22] VITALS: RESP 16
[2017-03-08] MEDS: IPRATROPIUM/ALBUTEROL 3 ML DEYVIAL IH SCH ×3 (06:06→15:28)
[2017-03-08 08:02] VITALS: BP 157/83; PULSE 61; TEMP 97.9; O2SAT 85
[2017-03-08] MEDS: THIAMINE HCL 100 MG TAB PO SCH (08:48)
[2017-03-08] MEDS: MULTIVITAMINS 1 EACH TAB PO SCH (08:48)
[2017-03-08] MEDS: FOLIC ACID 1 MG TAB PO SCH (08:48)
[2017-03-08] MEDS: WHITE WINE 120 ML BOTTLE PO SCH (08:57)
[2017-03-08] MEDS: LIDOCAINE 5% 1 EA PATCH TD SCH (08:58)
[2017-03-08] MEDS: ENOXAPARIN 40 MG/0.4 ML SYR SC SCH (10:14)
--- NOTE | 2017-03-08 10:55 | WOCRNPDOC ---
WOCRN Advanced Assessment Note - Skin Integrity Problem, Advanced Assess Left Flank Pressure Injury Dressing Type: Open to Air Exudate Amount: None Exudate Characteristic(s): None Katherine Wound Tissue: Non-blanching, Painful/Tender Wound Bed Color: Black, Red Wound Bed Constitution: Stable Eschar Site Odor: None Site Measurement - Head-to-Toe Length X Width X Depth (cm): 20cmx0.4cmx0.1cm Pressure Injury Stage: Stage 1, Unstageable Pressure Injury Present on Admit: Yes Skin Integrity Problem Comment: Linear, larger area of non-blanching erythema w / area of stable eschar noted medially (2.5cmx0.2cm). Wound measuring significantly smaller than previous assessment, indicating that wound is resolving. Site was RAILROAD HAND, per patient request. He does not feel that he need a dressing to this site. Discussed possible complications that could ensue as this wound evolves, such as site opening up or becoming infected, and patient was advised to consult his PCP if any complications arise. Report given to marine engineering teacher Carina. Left Lateral Knee Pressure Injury Dressing Type: Open to Air Exudate Amount: Scant Exudate Characteristic(s): Dried Katherine Wound Swelling: None Wound Bed Color: Brown, Red Wound Bed Constitution: Scab Site Odor: None Site Measurement - Head-to-Toe Length X Width X Depth (cm): [id number] Pressure Injury Stage: Stage 2 Pressure Injury Present on Admit: Yes Skin Integrity Problem Comment: Partial-thicknes tissue loss noted over L lateral knee, consistent with stage II pressure injury. No katherine-wound erythema or associated swelling noted.This wound was previously a closed DTI, and has since opened. Patient declines any wound care at this point. Discussed importance of ongoing monitoring and reporting to PCP any complications. Right Sacrum Pressure Injury Dressing Type: Open to Air Exudate Amount: None Exudate Characteristic(s): None Katherine Wound Tissue: Blanching, Intact Katherine Wound Swelling: None Pressure Injury Stage: Stage 1 Pressure Injury Present on Admit: Yes Skin Integrity Problem Comment: Healing stage I noted on sacrum, w/ blanching and intact skin. Some discoloration noted over previous injury, now resolved. Left Lateral Ankle Pressure Injury Dressing Type: Open to Air Exudate Amount: None Exudate Characteristic(s): None Katherine Wound Swelling: None Wound Bed Color: Purple, Red Site Odor: None Site Measurement - Head-to-Toe Length X Width X Depth (cm): [id number] Pressure Injury Stage: Deep Tissue Injury (DTI) Pressure Injury Present on Admit: Yes Skin Integrity Problem Comment: Bruise-like lesion still noted on L lateral malleolus, consistent w/ DTI. No apparrent change since previous assessment. Advised patient to continue to monitor site.
--- NOTE | 2017-03-08 20:13 | PDDCSUM ---
Discharge Summary Discharge Summary: DISCHARGE DIAGNOSES: -Gait instability, multifactorial etiology -Acute rhabdomyolysis without renal injury -Multiple Rib Fractures -Complex mix of pressure skin skin soft tissue injuries along with abrasions and ecchymoses along the left side of his body and in the groin area -Acute alcohol intoxication -Suspected vitamin deficiencies -Alcoholism, Unwilling to consider stopping alcohol -COPD COMPLICATIONS: none CONSULTATIONS: Dr Ferguson of trauma surgery HOSPITAL COURSE: This patient had fallen out of bed and apparently was trapped between his bed and a wall for 8 hours. Was finally rescued when a neighbor heard him yelling. He suffered rib fractures and pressure injury including skin injury and mild rhabdomyolysis. He recovered very well from these injuries. He had severe gait instability with acute factors aggravating a chronic gait instability. He did improve well enough to go home with PT and OT work done here. He does drink significant alcohol, would not disclose how much. It was presented to him that this greatly increases his risk of further injury as well as other health concerns, but he is entirely unwilling to consider stopping alcohol. He is discharge home in stable condition today. He uses a cane. He will not engage in any further physical therapy or fall prevention programs. MEDICATION CHANGES: NONE FOLLOW UP: with his hospice nurse in 2 weeks at wound care clinic
== END 2017-03-08 16:14 | disposition home or self-care (01) | DRG 184 ==
LOC: EDUNIT# → F3N 11:45 → OBSVTOIN 12:35
PROVIDERS: ADMIT Family Medicine; ATTEND Family Medicine
DX: S22.42XA Multiple fractures of ribs, left side, initial encounter for closed fracture (principal); E87.1 Hypo-osmolality and hyponatremia; T79.6XXA Traumatic ischemia of muscle, initial encounter; S30.811A Abrasion of abdominal wall, initial encounter; S80.212A Abrasion, left knee, initial encounter; S60.512A Abrasion of left hand, initial encounter; R26.9 Unspecified abnormalities of gait and mobility; F10.229 Alcohol dependence with intoxication, unspecified; E56.9 Vitamin deficiency, unspecified; J44.9 Chronic obstructive pulmonary disease, unspecified; W06.XXXA Fall from bed, initial encounter; I10 Essential (primary) hypertension; G62.9 Polyneuropathy, unspecified; K21.9 Gastro-esophageal reflux disease without esophagitis; F17.210 Nicotine dependence, cigarettes, uncomplicated
CPT/HCPCS: 82947-QW; 92523-GN; 97116-GP; 97161-GP; 97166-GO; 97530-GO; 97535-GO; G8978-GP-CJ; G8979-GP-CI; G8987-GO-CJ; G8988-GO-CI; G9165-GN-CH; G9166-GN-CH; G9167-GN-CH; J1650; J3411

== ENCOUNTER → 2017-03-09 | Outpatient (CLI) | payer OTHER, MEDICARE | LOC: BMCIMAGING 14:27 | PROVIDERS: ATTEND Orthopaedic Surgery | PROC: BQ10YZZ Fluoroscopy of Right Hip using Other Contrast (ICD-10-PCS; principal; 2017-03-09) | DX: M25.551 Pain in right hip (principal) ==

== ENCOUNTER → 2017-05-04 | Outpatient (CLI) | payer OTHER, MEDICARE | LOC: BMCIMAGING 14:59 | PROVIDERS: ATTEND Orthopaedic Surgery | DX: M16.0 Bilateral primary osteoarthritis of hip (principal) ==

== ENCOUNTER 2017-06-15 13:55 | Inpatient (IN) | payer OTHER, MEDICARE ==
--- NOTE | 2017-06-15 14:45 | EDPHY ---
H & P Stated Complaint: multiple falls over past 2 weeks, R hip pain, lower back pain Time Seen by Provider: 06/15/17 14:34 HPI/ROS: CHIEF COMPLAINT: Dehydration, falls HISTORY OF PRESENT ILLNESS: Patient is a 76-year-old man whose daughter brings him to the emergency department for several falls over the weekend as well as being bed-bound because he has chronic pain in his back and ribs . His daughter states that he has been drinking wine but not eating or drinking anything else. He has a history of chronic alcoholism and is unwilling to stop drinking. He also has a history of COPD, chronic gait instability, and multiple bruises, pressure sores and abrasions to his skin. He was admitted here in February after falling out of his bed and had multiple rib fractures at that time and rhabdomyolysis. He denies fevers or recent illness. His daughter states that he has not been strong enough to get out of bed in the last 3 days. He denies urinary symptoms. REVIEW OF SYSTEMS: Constitutional: Generalized weakness, denies: chills, fever, recent illness, recent injury EENTM: denies: blurred vision, double vision, nose congestion Respiratory: denies: cough, shortness of breath Cardiac: denies: chest pain, irregular heart rate, lightheadedness, palpitations Gastrointestinal/Abdominal: denies: abdominal pain, diarrhea, nausea, vomiting, blood streaked stools Genitourinary: denies: dysuria, frequency, hematuria, pain Musculoskeletal: See HPI Skin: See HPI Neurological: denies: headache, numbness, paresthesia, tingling, dizziness, weakness Hematologic/Lymphatic: denies: blood clots, easy bleeding, easy bruising Immunologic/allergic: denies: HIV/AIDS, transplant EXAM: GENERAL: Cachectic, multiple bruises of wounds HEAD: Atraumatic, normocephalic. EYES: Pupils equal round and reactive to light, extraocular movements intact, sclera anicteric, conjunctiva are normal. ENT: TMs normal, nares patent, oropharynx clear without exudates. Moist mucous membranes. NECK: Normal range of motion, supple without lymphadenopathy or JVD. LUNGS: Tenderness to right ribs, significant bruising to left flank. Breath sounds clear to auscultation bilaterally and equal. No wheezes rales or rhonchi. HEART: Regular rate and rhythm without murmurs, rubs or gallops. ABDOMEN: Soft, nontender, normoactive bowel sounds. No guarding, no rebound. No masses appreciated. BACK: No CVA tenderness, no spinal tenderness, step-offs or deformities EXTREMITIES: Normal range of motion, no pitting or edema. No clubbing or cyanosis. NEUROLOGICAL: Cranial nerves II through XII grossly intact. Normal speech, normal gait. 5/5 strength, normal movement in all extremities, normal sensation PSYCH: Normal mood, normal affect. SKIN: Multiple old bruises, wounds and ulcers. No obvious acute injuries. Source: Patient, Family, Old records Exam Limitations: No limitations - Personal History Current Tetanus/Diphtheria Vaccine: Yes Current Tetanus Diphtheria and Acellular Pertussis (TDAP): Yes Tetanus Vaccine Date: 03/2017 - Medical/Surgical History Hx Asthma: No Hx Chronic Respiratory Disease: No Hx Diabetes: No Hx Cardiac Disease: No Hx Renal Disease: No Hx Cirrhosis: No Hx Alcoholism: Yes Hx HIV/AIDS: No Hx Splenectomy or Spleen Trauma: No Other PMH: PMH: HTN - Family History Significant Family History: No pertinent family hx - Social History Smoking Status: Current every day smoker Alcohol Use: Heavy Drug Use: None Constitutional: Initial Vital Signs Temperature (C) 36.8 C 06/15/17 14:00 Heart Rate 95 06/15/17 14:00 Respiratory Rate 16 06/15/17 14:00 Blood Pressure 133/94 H 06/15/17 14:00 O2 Sat (%) 92 06/15/17 14:00 O2 Delivery Mode Room Air Allergies/Adverse Reactions: No Allergies [NKA] Allergy (Verified 11/27/16 13:08) Home Medications: Medication Instructions Recorded Ascorbic Acid [Vitamin C 500 mg 500 mg PO HS 09/18/15 (*)] Calcium Carbonate [Oyster Shell 500 mg PO HS 09/18/15 Calcium 500 mg (*)] Cholecalciferol Vit D3 [Vitamin D3 1,000 units PO HS 09/18/15 (*)] Cyanocobalamin [Vitamin B12 (*)] 100 mcg PO HS 09/18/15 Gabapentin [Neurontin 100 MG (*)] 300 mg PO HS 09/18/15 Hydrochlorothiazide [HCTZ (*)] 25 mg PO HS 09/18/15 Lisinopril [Zestril 40 mg (*)] 40 mg PO HS 09/18/15 Metoprolol Succinate Xr [Toprol Xl 100 mg PO HS 09/18/15 100 mg (*)] Omeprazole [Prilosec] 40 mg PO HS 09/18/15 amLODIPine BESYLATE [Norvasc 5 mg 5 mg PO HS 09/18/15 (*)] Herbals/Supplements -Info Only 1 ea PO DAILY 05/10/17 Medical Decision Making - Diagnostics EKG Interpretation: An EKG obtained and was read and documented in trace view. Please see trace view for full reading and report. Sinus rhythm, no acute ischemic changes Imaging Results: Imaging Impressions Hip X-Ray 06/15/17 14:43 Impression: Transverse avulsion fracture through the base of the right greater trochanter. Bilateral hip osteoarthritis, left greater than right. Ribs w/Chest X-Ray 06/15/17 14:43 Impression: 1. Acute mildly displaced right 5th through 8th rib fractures. 2. Age-indeterminate mildly displaced possibly subacute anterior right 9th through 11th rib fractures. ED Course/Re-evaluation: I discussed the case with Dr. Hernandez Rivera who will admit to medical service. Will add a CPK. 3:30 p.m. patient has at least 4 rib fractures on the right side seen on x-ray, no pneumothorax. These appear to be new compared to 4 months ago. Discussed this with Dr. Feliciano who will admit and Dr. Rivera will consult. Differential Diagnosis: Partial list of the Differential diagnosis considered include but were not limited to; failure to thrive, dehydration, wound infection and although unlikely based on the history and physical exam, I also considered , urinary tract infection rhabdomyolysis, acute coronary disease. Critical Care Time: I spent a total of 35 minutes of critical care time in obtaining history, performing a physical exam, bedside monitoring of interventions, collecting and interpreting tests and discussion with consultants but not including time spent performing procedures and exclusive of the PA's time. - Data Points Laboratory Results: Laboratory Results 06/15/17 14:55 06/15/17 14:55 06/15/17 06/15/17 06/15/17 14:55 14:55 14:55 WBC RBC Hgb Hct MCV MCH MCHC RDW Plt Count MPV Neut % (Auto) Lymph % (Auto) [place] % (Auto) Eos % (Auto) Baso % (Auto) Nucleat RBC Rel Count Absolute Neuts (auto) Absolute Lymphs (auto) Absolute Monos (auto) Absolute Eos (auto) Absolute Basos (auto) Absolute Nucleated RBC Immature Gran % Immature Gran # PT INR APTT Sodium 135 mEq/L mEq/L (134-144) Potassium 3.7 mEq/L mEq/L (3.5-5.2) Chloride 102 mEq/L mEq/L (97-110) Carbon Dioxide 25 mEq/l mEq/l (22-31) Anion Gap 8 mEq/L mEq/L (8-16) BUN 25 mg/dL H mg/dL (7-23) Creatinine 0.7 mg/dL mg/dL (0.7-1.3) Estimated GFR > 60 Glucose 100 mg/dL mg/dL (70-100) Calcium 9.0 mg/dL mg/dL (8.5-10.4) Creatine Kinase 29 IU/L IU/L (0-224) Lipase 700.0 IU/L H IU/L (23-300) Urine Color DAISHA Urine Appearance CLEAR Urine pH 6.0 (5.0-7.5) Ur Specific [place] 1.020 (1.002-1.030) Urine Protein NEGATIVE (NEGATIVE) Urine Ketones 1+ H (NEGATIVE) Urine Blood 3+ H (NEGATIVE) Urine Nitrate NEGATIVE (NEGATIVE) Urine Bilirubin NEGATIVE (NEGATIVE) Urine Urobilinogen 4.0 EU H EU (0.2-1.0) Ur Leukocyte Esterase NEGATIVE (NEGATIVE) Urine RBC 50-182 /hpf H /hpf (0-3) Urine WBC 3-5 /hpf H /hpf (0-3) Ur Epithelial Cells TRACE /lpf /lpf (NONE-1+) Urine Mucus 1+ /lpf /lpf (NONE-1+) Urine Glucose NEGATIVE (NEGATIVE) Ethyl Alcohol < 10 mg/dL mg/dL (0-10) 06/15/17 06/15/17 14:55 14:55 WBC 7.18 10^3/uL 10^3/uL (3.80-9.50) RBC 3.49 10^6/uL L 10^6/uL (4.40-6.38) Hgb 11.5 g/dL L g/dL (13.7-17.5) Hct 34.6 % L % (40.0-51.0) MCV 99.1 fL fL (81.5-99.8) MCH 33.0 pg pg (27.9-34.1) MCHC 33.2 g/dL g/dL (32.4-36.7) RDW 13.9 % % (11.5-15.2) Plt Count 137 10^3/uL L 10^3/uL (150-400) MPV 9.9 fL fL (8.7-11.7) Neut % (Auto) 73.5 % % (39.3-74.2) Lymph % (Auto) 16.9 % % (15.0-45.0) [place] % (Auto) 8.8 % % (4.5-13.0) Eos % (Auto) 0.1 % L % (0.6-7.6) Baso % (Auto) 0.3 % % (0.3-1.7) Nucleat RBC Rel Count 0.0 % % (0.0-0.2) Absolute Neuts (auto) 5.28 10^3/uL 10^3/uL (1.70-6.50) Absolute Lymphs (auto) 1.21 10^3/uL 10^3/uL (1.00-3.00) Absolute Monos (auto) 0.63 10^3/uL 10^3/uL (0.30-0.80) Absolute Eos (auto) 0.01 10^3/uL L 10^3/uL (0.03-0.40) Absolute Basos (auto) 0.02 10^3/uL 10^3/uL (0.02-0.10) Absolute Nucleated RBC 0.00 10^3/uL 10^3/uL (0-0.01) Immature Gran % 0.4 % % (0.0-1.1) Immature Gran # 0.03 10^3/uL 10^3/uL (0.00-0.10) PT 12.9 SEC SEC (12.0-15.0) INR 0.98 (0.83-1.16) APTT 25.5 SEC SEC (23.0-38.0) Sodium Potassium Chloride Carbon Dioxide Anion Gap BUN Creatinine Estimated GFR Glucose Calcium Creatine Kinase Lipase Urine Color Urine Appearance Urine pH Ur Specific [place] Urine Protein Urine Ketones Urine Blood Urine Nitrate Urine Bilirubin Urine Urobilinogen Ur Leukocyte Esterase Urine RBC Urine WBC Ur Epithelial Cells Urine Mucus Urine Glucose Ethyl Alcohol Medications Given: Discontinued Medications Chlordiazepoxide HCl (Librium) 50 mg PO ONCE ONE Stop: 06/15/17 18:40 Last Admin: 06/15/17 19:54 Dose: 50 mg Sodium Chloride (Ns) 1,000 mls @ 0 mls/hr IV ONCE ONE PRN Reason: Wide Open Stop: 06/15/17 14:56 Last Admin: 06/15/17 14:55 Dose: 1,000 mls Departure - Departure Disposition: [facility] Inpatient Acute Clinical Impression: Failure to thrive Qualifiers: Failure to thrive age range: in adult Qualified Code(s): R62.7 - Adult failure to thrive Ribs, multiple fractures Qualifiers: Encounter type: initial encounter Fracture type: closed Laterality: right Qualified Code(s): S22.41XA - Multiple fractures of ribs, right side, initial encounter for closed fracture Condition: Fair
[2017-06-15] MEDS ORDERED: NS 1,000 ML IV ONE (14:55)
[2017-06-15 15:08] LABS: % IMMATURE GRANULYOCYTES 0.4 % (0.0-1.1); ABSOLUTE IMMATURE GRANULOCYTES 0.03 10^3/uL (0.00-0.10); ADD DIFF? NO; ADD MORPH? NO; ADD SCAN? NO; ATYPICAL LYMPHOCYTE FLAG 0 (0-99); FRAGMENT RBC FLAG 0 (0-99); HEMATOCRIT 34.6 % (40.0-51.0); HEMOGLOBIN 11.5 g/dL (13.7-17.5); LEFT SHIFT FLG 0 (0-99); LIPEMIA HEMOLYSIS FLAG 80 (0-99); MEAN CELL HEMOGLOBIN CONCENTR. 33.2 g/dL (32.4-36.7); MEAN CELL VOLUME 99.1 fL (81.5-99.8); MEAN PLATELET VOLUME 9.9 fL (8.7-11.7); PLATELET CLUMPS FLAG 0 (0-99); PLATELET COUNT 137 10^3/uL (150-400); RED BLOOD CELL COUNT 3.49 10^6/uL (4.40-6.38); RED CELL DISTRIBUTION WIDTH 13.9 % (11.5-15.2)
[2017-06-15 15:16] LABS: INR 0.98 (0.83-1.16); PROTIME(PATIENT) 12.9 SEC (12.0-15.0)
[2017-06-15 15:17] LABS: APTT 25.5 SEC (23.0-38.0)
[2017-06-15 15:18] LABS: COLOR AMBER; LEUKOCYTE ESTERASE,URINE NEGATIVE (NEGATIVE); NITRITE,URINE NEGATIVE (NEGATIVE)
[2017-06-15 15:20] LABS: MUCUS 1+ /lpf (NONE-1+); RBC,URINE 50-182 /hpf (0-3)
--- NOTE | 2017-06-15 15:24 | CPEKG ---
Heart Rate: 74 RR Interval: 811 P-R Interval: 192 QRSD Interval: 86 QT Interval: 428 QTC Interval: 475 P [place]: 73 QRS [place]: 72 T Wave [place]: 65 EKG Severity - ABNORMAL ECG - EKG Impression: SINUS RHYTHM EKG Impression: CONSIDER ANTEROSEPTAL INFARCT Electronically Signed By: Fernando Harmon 15-Jun-2017 15:30:05
[2017-06-15 15:39] LABS: ANION GAP 8 mEq/L (8-16); CARBON DIOXIDE 25 mEq/l (22-31); CHLORIDE 102 mEq/L (97-110); CREATININE 0.7 mg/dL (0.7-1.3); ETHANOL SERUM < 10 mg/dL (0-10); GLOMERULAR FILTRATION RATE > 60; GLUCOSE 100 mg/dL (70-100); POTASSIUM 3.7 mEq/L (3.5-5.2); SODIUM 135 mEq/L (134-144)
[2017-06-15 17:13] LABS: BILIRUBIN,TOTAL 1.3 mg/dL (0.1-1.4); BILIRUBIN-CONJUGATED 0.5 mg/dL (0.0-0.5); BILIRUBIN-UNCONJUGATED 0.8 mg/dL (0.0-1.1); TOTAL PROTEIN 5.5 g/dL (6.3-8.2)
[2017-06-15] MEDS ORDERED: ONDANSETRON 4 MG/2 ML VIAL IVP PRN (17:14)
[2017-06-15 17:20] LABS: PREALBUMIN 12.9 mg/dL (17.6-36.0)
[2017-06-15] MEDS: LR 1,000 ML IV SCH (18:24)
[2017-06-15] MEDS: KETOROLAC 15 MG/1 ML SDV IVP SCH ×2 (18:26→23:39)
--- NOTE | 2017-06-15 18:26 | PDGENHP ---
History and Physical - Chief Complaint Acute chest pain - History of Present Illness primary service: Trauma surgery Reason for consultation: Medical comanagement HPI: 76-year-old male presenting with acute chest pain located in the right chest characterized as a sharp pain, associated with mechanical falls, back pain , right hip pain, thigh pain. The onset is approximately 1 month ago and Occurred in the context of numerous falls. Duration has been persistent thereafter. His father reportedly escalated over the past 5 days, leading to numerous abrasions. His family member reported that he has spent the majority of his time drinking wine in bed. The patient denies any dysuria or visible hematuria, and his main concern is mobility as well as having a glass of cold wine this evening. He reports that he has not been taking any of his home medications secondary to gait instability and inability to access them from his bed. History Information - Allergies/Home Medication List Allergies/Adverse Reactions: No Allergies [NKA] Allergy (Verified 11/27/16 13:08) Home Medications: Ascorbic Acid [Vitamin C 500 mg (*)] 500 mg PO HS 09/18/15 [Last Taken 2 Weeks Ago] Calcium Carbonate [Oyster Shell Calcium 500 mg (*)] 500 mg PO HS 09/18/15 [Last Taken 2 Weeks Ago] Cholecalciferol Vit D3 [Vitamin D3 (*)] 1,000 units PO HS 09/18/15 [Last Taken 2 Weeks Ago] Cyanocobalamin [Vitamin B12 (*)] 100 mcg PO HS 09/18/15 [Last Taken 2 Weeks Ago] Gabapentin [Neurontin 100 MG (*)] 300 mg PO HS 09/18/15 [Last Taken 2 Weeks Ago] Hydrochlorothiazide [HCTZ (*)] 25 mg PO HS 09/18/15 [Last Taken 2 Weeks Ago] Lisinopril [Zestril 40 mg (*)] 40 mg PO HS 09/18/15 [Last Taken 2 Weeks Ago] Metoprolol Succinate Xr [Toprol Xl 100 mg (*)] 100 mg PO HS 09/18/15 [Last Taken 2 Weeks Ago] Omeprazole [Prilosec] 40 mg PO HS 09/18/15 [Last Taken 2 Weeks Ago] amLODIPine BESYLATE [Norvasc 5 mg (*)] 5 mg PO HS 09/18/15 [Last Taken 2 Weeks Ago] Herbals/Supplements -Info Only 1 ea PO DAILY 05/10/17 [Last Taken 2 Weeks Ago] I have personally reviewed and updated: family history, medical history, social history, surgical history - Past Medical History diabetes type 2, hypertension Additional medical history: Alcoholism. COPD. severe protein calorie malnutrition. Bilateral lower extremity neuropathy. GERD. osteomyelitis of the 2nd right toe. macular degeneration. compression fracture of L4 - Surgical History Additional surgical history: right toe partial amputation, cataract surgery - Family History Additional family history: father with CHF and thyroid cancer, mother with dementia - Social History Smoking Status: Current every day smoker Alcohol Use: Heavy Drug Use: None Additional social history: resides alone, currently living in bed Review of Systems ROS: 10pt was reviewed & negative except for what was stated in HPI & below Constitutional: Reports: malaise, weakness Cardiac: Reports: chest pain Muscolosketal: Reports: back pain, other ( right rib pain) Neurological: Reports: paresthesia ( bilateral lower extremity) Physical Exam Temp Pulse Resp BP Pulse Ox 36.5 C 73 18 146/89 H 93 06/15/17 17:45 06/15/17 17:45 06/15/17 17:45 06/15/17 17:45 06/15/17 17:45 Constitutional: no apparent distress, chronically ill appearing, cachectic, other ( proximal muscle wasting), No uncomfortable Eyes: anicteric sclera, EOMI, other ( constricted pupils) Ears, Nose, Mouth, Throat: moist mucous membranes, hearing normal, ears appear normal, no oral mucosal ulcers Cardiovascular: regular rate and rhythym, no murmur, rub, or gallop, No edema Respiratory: no respiratory distress, no rales or rhonchi, clear to auscultation , other ( pain on deep inspiration) Gastrointestinal: normoactive bowel sounds, soft, non-tender abdomen, other ( unclear if he has a suprapubic mass or distension), No guarding Skin: other ( scattered comma dense ecchymoses and scabs with many abrasions) Musculoskeletal: other ( pain on palpation of right ribs, pain on palpation of right hip) Neurologic: AAOx3, other ( paresthesias bilateral distal lower extremities), No weakness ( motor strength 5/5 bilateral lower extremity), No asterixes ( no tremulousness) Psychiatric: interacting appropriately, not anxious, not encephalopathic, thought process linear Lab Data & Imaging Review 06/15/17 14:55 06/15/17 14:55 WBC 7.18 10^3/uL (3.80-9.50) 06/15/17 14:55 RBC 3.49 10^6/uL (4.40-6.38) L 06/15/17 14:55 Hgb 11.5 g/dL (13.7-17.5) L 06/15/17 14:55 Hct 34.6 % (40.0-51.0) L 06/15/17 14:55 MCV 99.1 fL (81.5-99.8) 06/15/17 14:55 MCH 33.0 pg (27.9-34.1) 06/15/17 14:55 MCHC 33.2 g/dL (32.4-36.7) 06/15/17 14:55 RDW 13.9 % (11.5-15.2) 06/15/17 14:55 Plt Count 137 10^3/uL (150-400) L 06/15/17 14:55 MPV 9.9 fL (8.7-11.7) 06/15/17 14:55 Neut % (Auto) 73.5 % (39.3-74.2) 06/15/17 14:55 Lymph % (Auto) 16.9 % (15.0-45.0) 06/15/17 14:55 [place] % (Auto) 8.8 % (4.5-13.0) 06/15/17 14:55 Eos % (Auto) 0.1 % (0.6-7.6) L 06/15/17 14:55 Baso % (Auto) 0.3 % (0.3-1.7) 06/15/17 14:55 Nucleat RBC Rel Count 0.0 % (0.0-0.2) 06/15/17 14:55 Absolute Neuts (auto) 5.28 10^3/uL (1.70-6.50) 06/15/17 14:55 Absolute Lymphs (auto) 1.21 10^3/uL (1.00-3.00) 06/15/17 14:55 Absolute Monos (auto) 0.63 10^3/uL (0.30-0.80) 06/15/17 14:55 Absolute Eos (auto) 0.01 10^3/uL (0.03-0.40) L 06/15/17 14:55 Absolute Basos (auto) 0.02 10^3/uL (0.02-0.10) 06/15/17 14:55 Absolute Nucleated RBC 0.00 10^3/uL (0-0.01) 06/15/17 14:55 Immature Gran % 0.4 % (0.0-1.1) 06/15/17 14:55 Immature Gran # 0.03 10^3/uL (0.00-0.10) 06/15/17 14:55 PT 12.9 SEC (12.0-15.0) 06/15/17 14:55 INR 0.98 (0.83-1.16) 06/15/17 14:55 APTT 25.5 SEC (23.0-38.0) 06/15/17 14:55 Sodium 135 mEq/L (134-144) 06/15/17 14:55 Potassium 3.7 mEq/L (3.5-5.2) 06/15/17 14:55 Chloride 102 mEq/L (97-110) 06/15/17 14:55 Carbon Dioxide 25 mEq/l (22-31) 06/15/17 14:55 Anion Gap 8 mEq/L (8-16) 06/15/17 14:55 BUN 25 mg/dL (7-23) H 06/15/17 14:55 Creatinine 0.7 mg/dL (0.7-1.3) 06/15/17 14:55 Estimated GFR > 60 06/15/17 14:55 Glucose 100 mg/dL (70-100) 06/15/17 14:55 Calcium 9.0 mg/dL (8.5-10.4) 06/15/17 14:55 Total Bilirubin 1.3 mg/dL (0.1-1.4) 06/15/17 Unknown Conjugated Bilirubin 0.5 mg/dL (0.0-0.5) 06/15/17 Unknown Unconjugated Bilirubin 0.8 mg/dL (0.0-1.1) 06/15/17 Unknown AST 31 IU/L (17-59) 06/15/17 Unknown ALT 8 IU/L (21-72) L 06/15/17 Unknown Alkaline Phosphatase 103 IU/L (38-126) 06/15/17 Unknown Creatine Kinase 29 IU/L (0-224) 06/15/17 14:55 Total Protein 5.5 g/dL (6.3-8.2) L 06/15/17 Unknown Albumin 3.0 g/dL (3.5-5.0) L 06/15/17 Unknown Prealbumin 12.9 mg/dL (17.6-36.0) L 06/15/17 Unknown Lipase 700.0 IU/L (23-300) H 06/15/17 14:55 Urine Color DAISHA 06/15/17 14:55 Urine Appearance CLEAR 06/15/17 14:55 Urine pH 6.0 (5.0-7.5) 06/15/17 14:55 Ur Specific [place] 1.020 (1.002-1.030) 06/15/17 14:55 Urine Protein NEGATIVE (NEGATIVE) 06/15/17 14:55 Urine Ketones 1+ (NEGATIVE) H 06/15/17 14:55 Urine Blood 3+ (NEGATIVE) H 06/15/17 14:55 Urine Nitrate NEGATIVE (NEGATIVE) 06/15/17 14:55 Urine Bilirubin NEGATIVE (NEGATIVE) 06/15/17 14:55 Urine Urobilinogen 4.0 EU (0.2-1.0) H 06/15/17 14:55 Ur Leukocyte Esterase NEGATIVE (NEGATIVE) 06/15/17 14:55 Urine RBC 50-182 /hpf (0-3) H 06/15/17 14:55 Urine WBC 3-5 /hpf (0-3) H 06/15/17 14:55 Ur Epithelial Cells TRACE /lpf (NONE-1+) 06/15/17 14:55 Urine Mucus 1+ /lpf (NONE-1+) 06/15/17 14:55 Urine Glucose NEGATIVE (NEGATIVE) 06/15/17 14:55 Ethyl Alcohol < 10 mg/dL (0-10) 06/15/17 14:55 Visualized and Interpreted imaging results: Yes Interpretation: displaced right rib fractures 5 through 8, fractures in 9 through 11 Visualized and Interpreted EKG results: Yes EKG Interpretation: Positive for: other ( normal sinus rhythm with Q-wave in lead V2) Assessment & Plan Assessment: 76-year-old male presenting with acute mechanical falls in the setting of alcoholism, severe protein calorie malnutrition, resulting in acute rib fractures and transverse avulsion right trochanteric fracture, consulted for medical comanagement Plan: 1. Falls. Acute on chronic, most likely secondary to a combination of gait instability from alcoholism as well as deconditioning and muscle wasting in the setting of malnutrition, leading to poor strength -reviewed outside records (DC Summary Dr. Marcelino Quintana 03/08/17), reveal patient has been here for rib fractures and rhabdo in setting of EtOH intoxication - physical and occupational therapy evaluations -Trauma surgery is his primary service on admission, once his trauma injuries have been stabilized, he will be transferred to the medical service 2. Severe protein calorie malnutrition. Evidenced by proximal muscle wasting, cachexia, reviewed outside records including 03/05/2017 albumin level of 1.4 -dietary consultation -dietary supplements 3. Alcoholism. Patient denies ever experiencing acute alcohol withdrawal or seizure, he has absolutely no intention to stop drinking -Will continue with nightly wine -he has no clinical evidence of pancreatitis, his elevated lipase levels probably secondary to chronic alcohol consumption, 11 repeat lipase tomorrow and we should monitor him for any signs of abdominal pain which would necessitate treatment for pancreatitis -if becoming agitated, consider Ativan 4. Rib fracture. Acute, incentive spirometer and treatment under the direction of Primary trauma service 5. Hematuria. Acute, new problem this provider, further workup indicated. Patient unaware, microscopic, he is at high risk for both bladder and kidney cancer given his extensive smoking history -discussed with patient, will get renal and bladder ultrasound at this time 6. Transverse avulsion fracture of the greater trochanter right. Care under the direction of trauma surgery 7. Hypertension. Chronic, continue home medications once reconciled I have discussed patient's presentation with Dr. Freddy Feliciano, we have agreed that the trauma service should take the patient onto their service this evening for further evaluation and stabilization of his traumatic injuries. Once trauma stabilization has occurred, likely 06/16, the patient will be transferred to the medical service if deemed appropriate by the hospitalist admit her, , please call.
[2017-06-15] MEDS: LIDOCAINE 5% 1 EA PATCH TD SCH (18:27)
[2017-06-15] MEDS ORDERED: WHITE WINE 120 ML BOTTLE PO SCH (18:30)
[2017-06-15] MEDS ORDERED: chlordiazePOXIDE 25 MG CAP PO ONE (18:39)
[2017-06-15] MEDS ORDERED: LORazepam 2 MG/ML INJ IVP PRN (18:39)
[2017-06-15] MEDS ORDERED: chlordiazePOXIDE 25 MG CAP PO PRN (18:39)
[2017-06-15 18:46] LABS: COLOR YELLOW; LEUKOCYTE ESTERASE,URINE NEGATIVE (NEGATIVE); NITRITE,URINE NEGATIVE (NEGATIVE)
[2017-06-15 18:49] LABS: MUCUS TRACE /lpf (NONE-1+)
[2017-06-15] MEDS: PATCH REMOVAL 1 EA PATCH TD SCH (19:31)
--- NOTE | 2017-06-15 19:32 | GHP ---
[f rep st] HISTORY AND PHYSICAL DATE OF ADMISSION: 06/15/2017 ADMITTING DIAGNOSIS: Multiple rib fractures and falls. HISTORY: This patient is a 76-year-old male who had several falls over the past several weekends. He states that he has neuropathy, walks with a cane and occasionally loses his balance. He was admitted in February of this year when he slipped between the edge of his bed and the wall. He was trapped there for several hours. He did develop rib fractures and rhabdomyolysis. He does enjoy drinking wine and has no interest in stopping drinking. He drinks a bottle to a bottle and a half a night. He has not been eating much, except for yogurt for the last several weeks. He says he cannot cook as it is difficult for him to stand, and he does not like fast food. He does have chronic gait instability. He is noted to have multiple bruises, pressure sores and skin tears. He came to the ER today because of some chest discomfort and "dehydration." He was found to have right ribs 5 through 8 fractured (these are felt to be fairly acute), and right ribs 9 through 11 which are age indeterminate, and old fractures in the left chest. I was asked to see him from a chest standpoint. On pursuing it, he states he thinks he broke the ribs 2 weekends ago or more remotely in the past, but he is unclear. PAST SOCIAL HISTORY: He has smoked a half a pack a day for 50+ years. He does drink a bottle and a half of red wine per night. ALLERGIES: He has no known drug allergies. MEDICATIONS: Include vitamin C 500 mg at bedtime, calcium carbonate 500 mg at bedtime, vitamin D3 100 units at bedtime, B12 100 units at bedtime, Neurontin 100 mg at bedtime, hydrochlorothiazide 25 mg at bedtime, Zestril 40 mg at bedtime and Toprol-XL 100 mg at bedtime. He also takes Norvasc 5 mg at bedtime. He is supposed to take eye drops, but he has forgotten to take them for the past 3 months and does not even know what his eye drops should be. SURGERIES: Have included bilateral cataract extraction with lens replacement, a right 2nd distal phalanx amputation for osteomyelitis. Of note, he has poor dentition. He has hypertension, peripheral neuropathy, macular degeneration and chronic hyponatremia. REVIEW OF SYSTEMS: He wears lenses for visual correction. He has had hypertension for 25 years. He states he did have a heart attack 14 years ago. He has been known to have right kidney stones. Last attack was 20 years ago. PHYSICAL EXAMINATION: GENERAL: He is he is awake, alert, and communicative. NEUROLOGIC: He is oriented x3. His Vanessa Coma Scale is 15. He is moving all extremities. He does not appear to have any focal lateralizing neurologic findings. Strength is 5/5 in all muscle groups. I did not test his neuropathy. HEENT: His skull is normocephalic. Pupils are equal, round, reactive to light and accommodation. Extraocular movements intact. Tympanic membranes are clear. He has poor dentition and is missing multiple molars. NECK: Nontender. BACK : Unremarkable. LUNGS: Clear to auscultation. He has minimal tenderness with lateral compression and anterior compression. CARDIAC: Shows S1 and S2 to be normal. ABDOMEN: Soft and nontender. EXTREMITIES: His pelvis is stable to AP and lateral compression. The lower extremities are ranged. Upper extremities are ranged. No abnormalities are identified. He has multiple contusions, skin tears and scabbing on his forearms and upper arms bilaterally. IMAGING: X-rays reveal the rib fractures, as mentioned above. There is a transverse avulsion of a fracture of the right greater trochanter. Note is made that he has an abnormal EKG consistent with an anterior septal PA. This is not felt by Dr. Harmon to be an acute finding. LABORATORY DATA: His urine shows 50-182 red cells per high-power field. He has 3-5 white cells per high-power field. He has 4+ urobilinogen, but his bilirubin is not elevated. White count is 7.2, hematocrit 34, platelets 137. His alcohol is less than 10. HIS LIPASE IS 700. BUN is 25, his creatinine was 0.7. His INR is 0.98. ADDITIONAL HISTORY: He has been seen since his last admission on several occasions by Dr. Sim. There are plans to consider replacing his right hip, according to the patient. It is interesting that his hip is nonpainful at this time. I will make Dr. Sim aware of the patient's admission. IMPRESSION: 1. 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 2. Ataxia possibly secondary to alcohol use, with multiple falls resulting in rib fractures and skin abrasions. The rib fractures appear to be age indeterminate or at least from 7-10 days ago. PLAN: He will be admitted for chest toilet and observation. Incidental note of an elevation in his lipase is identified. This is probably due to alcohol use. His blood in his urine may be due to his falls, due to nephrolithiasis or due to urinary tract neoplasia. A Followup UA will be obtained. Dr. Gurjit Rivera from the hospitalist service will be following the patient as well. If he is stable overnight, consideration will be given to transferring him to the hospitalist service. /[id number]/MODL MTDD
[2017-06-15] MEDS: THIAMINE HCL 500 MG in NS 100 ML IV SCH (19:51)
[2017-06-15] MEDS: CYANO/VITAMIN B12 100 MCG TAB PO SCH (19:51)
[2017-06-15] MEDS: amLODIPine BESYLATE 5 MG TAB PO SCH (19:52)
[2017-06-15] MEDS: PANTOPRAZOLE SODIUM 40 MG TAB PO SCH (19:53)
[2017-06-15] MEDS: BACITRACIN ZINC 14.2 GM OINTTUBE TP SCH (19:53)
[2017-06-15] MEDS: HYDROCHLOROTHIAZIDE 25 MG TAB PO SCH (19:53)
[2017-06-15] MEDS: CHOLECALCIFEROL VIT D3 1,000 UNITS TAB PO SCH (19:53)
[2017-06-15] MEDS: CALCIUM CARBONATE 500 MG TAB PO SCH ×2 (19:54→19:56)
[2017-06-15] MEDS: HYDROmorphONE/DILAUDID 1 MG/ML SYR IVP PRN ×2 (19:55→21:10)
[2017-06-15] MEDS: LISINOPRIL 40 MG TAB PO SCH (19:56)
[2017-06-15] MEDS: ASCORBIC ACID 500 MG TAB PO SCH (19:56)
[2017-06-15] MEDS: GABAPENTIN 300 MG CAP PO SCH (19:56)
[2017-06-15] MEDS: ENOXAPARIN 30 MG/0.3 ML SYR SC SCH (19:57)
[2017-06-15] MEDS ORDERED: GABAPENTIN 100 MG CAP PO SCH (21:00)
[2017-06-15] MEDS: METOPROLOL SUCCINATE XR 100 MG TAB PO SCH (21:10)
[2017-06-15] MEDS: ACETAMINOPHEN 500 MG TAB PO SCH (21:10)
[2017-06-15] MEDS ORDERED: ACETAMINOPHEN 325 MG TAB PO SCH (22:00)
[2017-06-16] MEDS: ACETAMINOPHEN 500 MG TAB PO SCH ×3 (04:43→21:25)
[2017-06-16] MEDS: KETOROLAC 15 MG/1 ML SDV IVP SCH ×4 (04:43→23:29)
[2017-06-16] MEDS: LR 1,000 ML IV SCH ×2 (04:43→17:16)
[2017-06-16 04:50] LABS: % IMMATURE GRANULYOCYTES 0.5 % (0.0-1.1); ABSOLUTE IMMATURE GRANULOCYTES 0.02 10^3/uL (0.00-0.10); ADD DIFF? NO; ADD MORPH? NO; ADD SCAN? NO; ATYPICAL LYMPHOCYTE FLAG 10 (0-99); FRAGMENT RBC FLAG 0 (0-99); HEMOGLOBIN 10.3 g/dL (13.7-17.5); LEFT SHIFT FLG 0 (0-99); LIPEMIA HEMOLYSIS FLAG 80 (0-99); MEAN CELL HEMOGLOBIN 32.8 pg (27.9-34.1); MEAN CELL HEMOGLOBIN CONCENTR. 33.2 g/dL (32.4-36.7); MEAN CELL VOLUME 98.7 fL (81.5-99.8); MEAN PLATELET VOLUME 9.9 fL (8.7-11.7); PLATELET CLUMPS FLAG 0 (0-99); PLATELET COUNT 103 10^3/uL (150-400); RED BLOOD CELL COUNT 3.14 10^6/uL (4.40-6.38)
[2017-06-16 05:04] LABS: ALANINE AMINOTRANSFERASE 23 IU/L (21-72); ALBUMIN 2.3 g/dL (3.5-5.0); ALKALINE PHOSPHATASE 70 IU/L (38-126); ANION GAP 5 mEq/L (8-16); ASPARTATE AMINOTRANSFERASE 16 IU/L (17-59); BILIRUBIN,TOTAL 0.9 mg/dL (0.1-1.4); CALCIUM 9.1 mg/dL (8.5-10.4); CARBON DIOXIDE 26 mEq/l (22-31); CHLORIDE 104 mEq/L (97-110); CREATININE 0.7 mg/dL (0.7-1.3); GLOMERULAR FILTRATION RATE > 60; GLUCOSE 85 mg/dL (70-100); MAGNESIUM 1.4 mg/dL (1.6-2.3); POTASSIUM 3.2 mEq/L (3.5-5.2); SODIUM 135 mEq/L (134-144); TOTAL PROTEIN 4.6 g/dL (6.3-8.2)
[2017-06-16 05:12] LABS: TROPONIN I < 0.012 ng/mL (0-0.034)
[2017-06-16] MEDS ORDERED: PROTOCOL MAGNESIUM 1 DOSE IV PRN (08:19)
[2017-06-16] MEDS ORDERED: PROTOCOL POTASSIUM 1 DOSE MISC PRN (08:19)
[2017-06-16] MEDS ORDERED: MAGNESIUM SULF 2 GM/WATER 50 ML IV ONE (08:38)
[2017-06-16] MEDS ORDERED: POTASSIUM CL 10 MEQ TAB PO ONE (08:38)
[2017-06-16] MEDS: PANTOPRAZOLE SODIUM 40 MG TAB PO SCH ×2 (09:13→19:21)
[2017-06-16] MEDS: THIAMINE HCL 500 MG in NS 100 ML IV SCH (09:13)
[2017-06-16] MEDS: LIDOCAINE 5% 1 EA PATCH TD SCH (09:13)
[2017-06-16] MEDS: ENOXAPARIN 30 MG/0.3 ML SYR SC SCH ×2 (09:14→19:21)
[2017-06-16] MEDS: BACITRACIN ZINC 14.2 GM OINTTUBE TP SCH (09:15)
[2017-06-16] MEDS: HYDROmorphONE/DILAUDID 1 MG/ML SYR IVP PRN ×2 (10:54→21:24)
--- NOTE | 2017-06-16 10:54 | TRAUMAPN ---
- Problem/Surgery Performed (1) Ribs, multiple fractures Assessment/Plan: 06/16 Pain controlled. Chest x-ray pending. IS to 1999 Qualifiers: Encounter type: initial encounter Fracture type: closed Laterality: right Fracture healing: F Qualified Code(s): S22.41XA - Multiple fractures of ribs, right side, initial encounter for closed fracture (2) Multiple fractures of ribs of left side Assessment/Plan: 06/16 theses are old kaitlynn fractures ant not currently an issue Qualifiers: Encounter type: E Fracture type: F Fracture healing: F (3) Failure to thrive Assessment/Plan: 06/16 Pre-albumin 12 and total lymphocytes 1200 - both consistent with moderate to severe nutritional deficiency. will calorie count and supplements Qualifiers: Failure to thrive age range: in adult Qualified Code(s): R62.7 - Adult failure to thrive (5) Multiple wounds of skin Assessment/Plan: 06/16 has multiple skin wounds of varying ages ( skin tears/abrasions). They are being debrided and treated with topical antibiotics. Adequate nutrition important! (6) Fracture of greater trochanter of right femur Assessment/Plan: 06/16 This is a chronic problem that Dr. Sim is following. He will be notified. Weight bearing will not be a problem with this issue. Qualifiers: Encounter type: E Fracture type: F Open fracture type: O Fracture alignment: F Fracture healing: F Assessment/Plan: 06/16 Overall he is doing well. Subjective: No complaints Objective: Vital Signs Temp Pulse Resp BP Pulse Ox 36.8 C 81 21 H 131/86 H 93 06/16/17 07:25 06/16/17 07:25 06/16/17 07:25 06/16/17 07:25 06/16/17 07:25 Laboratory Results 06/16/17 04:15 06/16/17 04:15 06/15/17 06/16/17 06/17/17 05:59 05:59 05:59 Intake Total 1200 Output Total 100 Balance 1100 PT 12.9 SEC (12.0-15.0) 06/15/17 14:55 INR 0.98 (0.83-1.16) 06/15/17 14:55 Physical Exam - Physical Exam General Appearance: WD/WN, alert, no apparent distress Neck: non-tender, full range of motion, supple Respiratory: lungs clear, normal breath sounds (No E to A changes) Cardiac/Chest: regular rate, rhythm Abdomen: normal bowel sounds (no stool yet), non-tender, soft Male Genitalia: deferred Rectal: deferred Back: Normal inspection Skin: normal color, warm/dry Extremities: other (multiple skin tears and abrasions in various stages of healing on all extremities) Neuro/Psych: no motor/sensory deficits, alert, normal mood/affect, oriented x 3 Time Spent w/Patient (minutes): 25
--- NOTE | 2017-06-16 12:02 | WOCRNPDOC ---
NADER Advanced Assessment Note - Skin Integrity Problem, Advanced Assess Right Arm Scab Dressing Type: Adaptic Touch, Gauze, Kerlix Dressing Description: Shadowed Exudate Amount: Minimal Exudate Color: Reddish/Yellow Exudate Characteristic(s): Serosanguinous Integumentary Issue Intervention: Dressing Changed Analilia Wound Tissue: Ecchymotic, Thin, Dry Analilia Wound Swelling: None Wound Bed Color: Brown, Red, Yellow Wound Bed Constitution: Smooth Tissue, Scab, Adhered Slough Site Odor: None Site Measurement - Head-to-Toe Length X Width X Depth (cm): Proximal: 4yqw6ppa9.2cm. Distal:2cmx1.1cmx0.2cm Skin Integrity Problem Comment: Two, discrete skin tears noted on R forearm just distal to AC. The more proximal wound was exudative and slough-filled; performed mechanical debridement, removing most of the slough w/ wound cleanser and gauze, leaving the remaining wound bed approx. 10% adhered slough and 90% smooth, non-granulating tissue. Distal wound comprised of smooth, non-granular tissue in wound bed, w/ dried scab along margins. Scab was loosened and removed through cleaning. Analilia-wound skin is thin, fragile, and ecchymotic; patient has an extensive h/o skin tears. Sites assessed w/ Dr. Feliciano, who ordered Bacitracin to wounds. Wound RN re-dressed, and informed retail branch manager Karlie that nurses can care for these wounds ongoing. Wound RN does not need to follow these wounds going forward. Left Arm Scab Dressing Type: Adaptic Touch, Gauze, Kerlix Dressing Description: Intact Exudate Amount: Scant Exudate Color: Red, Brown Exudate Characteristic(s): Bloody Integumentary Issue Intervention: Dressing Changed Analilia Wound Tissue: Ecchymotic, Thin, Dry Analilia Wound Swelling: Mild Wound Bed Color: Brown, Purple, Red Wound Bed Constitution: Smooth Tissue, Scab Site Measurement - Head-to-Toe Length X Width X Depth (cm): 1cmx0.9cmx0.2cm Skin Integrity Problem Comment: Skin tear noted on L forearm, w/ extensively scabbed wound bed. Attempted to loosen w/ wound cleanser and gauze, but w/ minimal success. This tissue will most likely soften w/ Bacitracin and moist healing environment and slough off with subsequent dressing changes. Analilia-wound tissue ecchymotic and thin w/ no swelling noted. Staff RNs to manage wound ongoing. Left Lower Leg Scab Dressing Type: Adaptic Touch, Gauze, Kerlix Dressing Description: Intact Exudate Amount: Scant Exudate Color: Red, Brown Exudate Characteristic(s): Bloody Integumentary Issue Intervention: Dressing Changed Analilia Wound Tissue: Ecchymotic, Thin, Dry Analilia Wound Swelling: Mild Wound Bed Color: Brown, Red, Yellow Wound Bed Constitution: Smooth Tissue, Scab, Adhered Slough Site Measurement - Head-to-Toe Length X Width X Depth (cm): 1.0dft2lto1.2cm Skin Integrity Problem Comment: Skin tear noted on anterior aspect of L celaya, no flap remaining to approximate. Wound bed comprised of 80% smooth, non- granulating tissue and 20% adhered slough, w/ what appears to be a non- fluctuant hematoma just lateral to the wound bed. No erythema analilia-wound, and only mild swelling noted. Patient denies pain to site. Wound re-dressed, and retail branch manager Karlie advised to follow Dr. Feliciano's order for Bacitracin to wounds followed by non-adherent dressings. Right First Toe Dressing Type: Open to Air Exudate Amount: Scant Exudate Color: Red Exudate Characteristic(s): Bloody Integumentary Issue Intervention: Dressing Applied, Conservative Sharp Bedside Debridement (of surrounding callous) Analilia Wound Tissue: Altered Sensitivity (neuropathic), Calloused Analilia Wound Swelling: None Wound Bed Color: Red, Yellow Wound Bed Constitution: Granulation Tissue (95%), Adhered Slough (5%) Wound Edges: Well Defined Site Odor: Slight Site Measurement - Head-to-Toe Length X Width X Depth (cm): 1.9cmx1.3cmx0.2cm Skin Integrity Problem Comment: Extensively calloused, dry tissue noted over plantar aspect of R great toe. After mechanical debridement w/ wound cleanser and gauze, underlying wound was revealed w/ mostly granulation and trace slough noted. There was extensive analilia-wound callous, which was removed w/ scalpel. While patient is not a diabetic, he does report significant neuropathy to this extremity and was unable to feel touch when site assessed. Of note is that he has a partial amputation of his 2nd toe on this extremity, which indicates he is at high risk of infection and subsequent complications r/t his neuropathy. Silvasorb gel and Hydrofera Blue Ready applied to wound, secured over forefoot w / Poly. Wound RN will follow-up with this patient again on Tuesday 06/19 to reassess this site. Conservative Sharp Bedside Debridement Performed: Yes Consent Signed for Debridement: Yes Timeout Performed per Protocol: Yes Instrument Used for Debridement: Scapel Estimated Blood Loss from Debridement: 0 Conservative Sharp Bedside Debridement Outcome: Other Conservative Sharp Bedside Debridement Comment: callous removed Sacrum Pressure Injury Dressing Type: Open to Air Exudate Amount: None Exudate Characteristic(s): None Integumentary Issue Intervention: Dressing Applied, Dressing Initialed & Dated Analilia Wound Tissue: Blanching, Intact Analilia Wound Swelling: None Wound Bed Color: Red Site Measurement - Head-to-Toe Length X Width X Depth (cm): 0.2cmx0.2qqz0ku Pressure Injury Stage: Stage 1 Pressure Injury Present on Admit: No (not noted in H&P) Skin Integrity Problem Comment: Pinpoint area of non-blanching erythema noted over sacrum, consistent in appearance w/ stage 1 pressure injury. Blanching erythema analilia-wound, presently intact. Sacral foam dressing applied, and patient repositioned on his L side. retail branch manager Anna applied Accu-max pump to patient's bed. Wound RN will initiate turn orders. retail branch manager Anna and student RN Chuck present and assisting during assessment.
--- NOTE | 2017-06-16 15:18 | HOSPPROG ---
Hospitalist Progress Note Assessment/Plan: * Rib fractures x 7 -pulm hygiene, pain control * Transverse avulsion fracture of right greater trochanter -await input from Dr. Sim * Possible free air under diaphragm -d/w Dr. Feliciano - he is following serial abd exams -patient does not appear septic or with acute abdomen -consider CT abd/pelvis * Etoh withdrawal -benzos prn * Recurrent falls - multiple skin tears * Severe protein calorie malnutrition -dietary consult * Hematuria/bladder thickening -outpatient urology for cystoscopy * HTN -norvasc, lisinopril, metoprolol, HCTZ * DM II with neuropathy * Tobacco dependence Subjective: No new complaints. Minimal chest pain. Right hip pain unchanged for 1 year. Objective: Vital Signs Temp Pulse Resp BP Pulse Ox 36.5 C 78 18 95/55 L 91 L 06/16/17 12:00 06/16/17 12:00 06/16/17 12:00 06/16/17 12:00 06/16/17 12:00 Laboratory Results 06/16/17 04:15 06/16/17 04:15 06/15/17 06/16/17 06/17/17 05:59 05:59 05:59 Intake Total 200 Output Total 100 Balance 100 PT 12.9 SEC (12.0-15.0) 06/15/17 14:55 INR 0.98 (0.83-1.16) 06/15/17 14:55 abd us - positive bladder wall thickening case d/w Dr. Feliciano - see above - Physical Exam Constitutional: no apparent distress, not in pain, chronically ill appearing, cachectic Cardiovascular: regular rate and rhythym, no murmur, rub, or gallop Respiratory: no respiratory distress, no rales or rhonchi, clear to auscultation Gastrointestinal: normoactive bowel sounds, soft, non-tender abdomen, no palpable masses Skin: no rashes or abrasions, no fluctuance, no induration Neurologic: AAOx3, sensation intact bilaterally Psychiatric: interacting appropriately, not anxious, not encephalopathic, thought process linear ICD10 Worksheet Patient Problems: Problems Problem Status Onset Failure to thrive Acute Fracture of greater trochanter of right femur Acute Multiple wounds of skin Acute Ribs, multiple fractures Acute Wound of skin Acute Elevated CK Acute Multiple fractures of ribs of left side Acute Osteomyelitis Acute
[2017-06-16] MEDS: LISINOPRIL 40 MG TAB PO SCH (19:20)
[2017-06-16] MEDS: ASCORBIC ACID 500 MG TAB PO SCH (19:20)
[2017-06-16] MEDS: METOPROLOL SUCCINATE XR 100 MG TAB PO SCH (19:20)
[2017-06-16] MEDS: GABAPENTIN 300 MG CAP PO SCH (19:20)
[2017-06-16] MEDS: HYDROCHLOROTHIAZIDE 25 MG TAB PO SCH (19:20)
[2017-06-16] MEDS: CHOLECALCIFEROL VIT D3 1,000 UNITS TAB PO SCH (19:20)
[2017-06-16] MEDS: oxyCODONE IR 5 MG TAB PO PRN ×2 (19:20→23:29)
[2017-06-16] MEDS: CALCIUM CARBONATE 500 MG TAB PO SCH (19:20)
[2017-06-16] MEDS: CYANO/VITAMIN B12 100 MCG TAB PO SCH (19:20)
[2017-06-16] MEDS: amLODIPine BESYLATE 5 MG TAB PO SCH (19:21)
[2017-06-16 19:36] LABS: POTASSIUM 3.7 mEq/L (3.5-5.2)
[2017-06-16] MEDS ORDERED: NON-FORMULARY NEW DRUG (Omeprazole [Prilosec] 40 MG) PO SCH (21:00)
[2017-06-17] MEDS: HYDROmorphONE/DILAUDID 1 MG/ML SYR IVP PRN ×2 (01:05→05:46)
[2017-06-17] MEDS: BACITRACIN ZINC 14.2 GM OINTTUBE TP SCH ×3 (01:06→21:02)
[2017-06-17] MEDS: PATCH REMOVAL 1 EA PATCH TD SCH ×2 (01:06→21:04)
[2017-06-17] MEDS ORDERED: LORazepam 1 MG TAB PO ONE (01:12)
[2017-06-17] MEDS: LR 1,000 ML IV SCH (03:40)
[2017-06-17] MEDS: oxyCODONE IR 5 MG TAB PO PRN ×2 (03:40→08:34)
[2017-06-17 05:04] LABS: ANION GAP 6 mEq/L (8-16); CALCIUM 8.7 mg/dL (8.5-10.4); CARBON DIOXIDE 26 mEq/l (22-31); CHLORIDE 101 mEq/L (97-110); CREATININE 0.7 mg/dL (0.7-1.3); GLOMERULAR FILTRATION RATE > 60; GLUCOSE 107 mg/dL (70-100); MAGNESIUM 1.4 mg/dL (1.6-2.3); POTASSIUM 3.8 mEq/L (3.5-5.2); SODIUM 133 mEq/L (134-144)
[2017-06-17] MEDS: ACETAMINOPHEN 500 MG TAB PO SCH ×3 (05:26→21:00)
[2017-06-17] MEDS: KETOROLAC 15 MG/1 ML SDV IVP SCH ×3 (05:26→17:34)
[2017-06-17] MEDS ORDERED: POTASSIUM CL 10 MEQ TAB PO ONE (07:38)
[2017-06-17] MEDS: LIDOCAINE 5% 1 EA PATCH TD SCH (08:30)
[2017-06-17] MEDS: ENOXAPARIN 30 MG/0.3 ML SYR SC SCH (08:30)
[2017-06-17] MEDS: THIAMINE HCL 500 MG in NS 100 ML IV SCH (08:30)
[2017-06-17 09:38] LABS: % IMMATURE GRANULYOCYTES 0.4 % (0.0-1.1); ABSOLUTE IMMATURE GRANULOCYTES 0.02 10^3/uL (0.00-0.10); ADD DIFF? NO; ADD MORPH? NO; ADD SCAN? NO; ATYPICAL LYMPHOCYTE FLAG 0 (0-99); FRAGMENT RBC FLAG 0 (0-99); HEMATOCRIT 29.6 % (40.0-51.0); HEMOGLOBIN 9.9 g/dL (13.7-17.5); LEFT SHIFT FLG 0 (0-99); LIPEMIA HEMOLYSIS FLAG 80 (0-99); MEAN CELL HEMOGLOBIN 33.4 pg (27.9-34.1); MEAN CELL HEMOGLOBIN CONCENTR. 33.4 g/dL (32.4-36.7); MEAN PLATELET VOLUME 10.7 fL (8.7-11.7); PLATELET CLUMPS FLAG 0 (0-99); PLATELET COUNT 101 10^3/uL (150-400); RED BLOOD CELL COUNT 2.96 10^6/uL (4.40-6.38); RED CELL DISTRIBUTION WIDTH 14.1 % (11.5-15.2)
[2017-06-17] MEDS ORDERED: MAGNESIUM SULF 2 GM/WATER 50 ML IV ONE (11:24)
--- NOTE | 2017-06-17 17:38 | HOSPPROG ---
Hospitalist Progress Note Assessment/Plan: * Rib fractures x 7 -pulm hygiene, pain control * Transverse avulsion fracture of right greater trochanter -await input from Dr. Sim * Possible free air under diaphragm -abd exam very benign - doubt acute abdomen -check CT abd/pelvis * Etoh withdrawal -benzos prn * Recurrent falls - multiple skin tears * Severe protein calorie malnutrition -dietary consult * Hematuria/bladder thickening -outpatient urology for cystoscopy * HTN -norvasc, lisinopril, metoprolol, HCTZ * DM II with neuropathy * Tobacco dependence Subjective: No new complaints. Objective: Vital Signs Temp Pulse Resp BP Pulse Ox 36.6 C 60 16 90/55 L 89 L 06/17/17 15:12 06/17/17 15:12 06/17/17 15:12 06/17/17 15:12 06/17/17 15:12 Laboratory Results 06/17/17 04:28 06/17/17 04:28 06/16/17 06/17/17 06/18/17 05:59 05:59 05:59 Intake Total 200 250 375 Output Total 100 225 400 Balance 100 25 -25 PT 12.9 SEC (12.0-15.0) 06/15/17 14:55 INR 0.98 (0.83-1.16) 06/15/17 14:55 CXR viewed, my personal interpretation is - atelectasis - Physical Exam Constitutional: no apparent distress, appears nourished, not in pain Cardiovascular: regular rate and rhythym, no murmur, rub, or gallop Respiratory: no respiratory distress, no rales or rhonchi, clear to auscultation Gastrointestinal: normoactive bowel sounds, soft, non-tender abdomen, no palpable masses Skin: no rashes or abrasions, no fluctuance, no induration Neurologic: AAOx3, sensation intact bilaterally Psychiatric: interacting appropriately, not anxious, not encephalopathic, thought process linear ICD10 Worksheet Patient Problems: Problems Problem Status Onset Failure to thrive Acute Fracture of greater trochanter of right femur Acute Multiple wounds of skin Acute Ribs, multiple fractures Acute Wound of skin Acute Elevated CK Acute Multiple fractures of ribs of left side Acute Osteomyelitis Acute
[2017-06-17] MEDS ORDERED: IOPAMIDOL (ISOVUE-300) 100 ML BTL ONE ×2 (17:42)
[2017-06-17 18:41] LABS: POTASSIUM 3.6 mEq/L (3.5-5.2)
--- NOTE | 2017-06-17 20:47 | SOAPPROG ---
SOAP Progress Note Assessment/Plan: Assessment: DOING WELL WITH BILAT RIB FXs AFTER A FALL BS EQUAL/ CXR STABLE/ AFEBRILE SKIN WOUNDS OK AND CLEAN ATAXIA AND NEUROPATHY A ROOT CAUSE OF MULTIPLE FALLS Plan:HOME WHEN STABLE ALTHO HE SEEMS TO BE A SERIOUS FALL RISK 06/17/17 20:45 Objective: Vital Signs Temp Pulse Resp BP Pulse Ox 36.6 C 65 20 105/67 91 L 06/17/17 19:28 06/17/17 19:28 06/17/17 19:28 06/17/17 19:28 06/17/17 19:28 Laboratory Results 06/17/17 04:28 06/17/17 18:15 06/16/17 06/17/17 06/18/17 05:59 05:59 05:59 Intake Total 200 250 375 Output Total 100 225 400 Balance 100 25 -25 PT 12.9 SEC (12.0-15.0) 06/15/17 14:55 INR 0.98 (0.83-1.16) 06/15/17 14:55 ICD10 Worksheet Patient Problems: Problems Problem Status Onset Failure to thrive Acute Fracture of greater trochanter of right femur Acute Multiple wounds of skin Acute Ribs, multiple fractures Acute Wound of skin Acute Elevated CK Acute Multiple fractures of ribs of left side Acute Osteomyelitis Acute
[2017-06-17] MEDS: CYANO/VITAMIN B12 100 MCG TAB PO SCH (21:00)
[2017-06-17] MEDS: GABAPENTIN 300 MG CAP PO SCH (21:00)
[2017-06-17] MEDS: PANTOPRAZOLE SODIUM 40 MG TAB PO SCH (21:00)
[2017-06-17] MEDS: CHOLECALCIFEROL VIT D3 1,000 UNITS TAB PO SCH (21:00)
[2017-06-17] MEDS: HYDROCHLOROTHIAZIDE 25 MG TAB PO SCH (21:01)
[2017-06-17] MEDS: ASCORBIC ACID 500 MG TAB PO SCH (21:01)
[2017-06-17] MEDS: METOPROLOL SUCCINATE XR 100 MG TAB PO SCH (21:02)
[2017-06-17] MEDS: LISINOPRIL 40 MG TAB PO SCH (21:02)
[2017-06-17] MEDS: amLODIPine BESYLATE 5 MG TAB PO SCH (21:03)
[2017-06-17] MEDS ORDERED: POTASSIUM CL 20 MEQ TAB PO ONE (22:04)
[2017-06-18] MEDS: KETOROLAC 15 MG/1 ML SDV IVP SCH ×4 (00:15→17:07)
[2017-06-18 04:26] VITALS: O2SAT 89
[2017-06-18 05:03] LABS: % IMMATURE GRANULYOCYTES 0.6 % (0.0-1.1); ABSOLUTE IMMATURE GRANULOCYTES 0.03 10^3/uL (0.00-0.10); ADD DIFF? NO; ADD MORPH? NO; ADD SCAN? NO; ATYPICAL LYMPHOCYTE FLAG 0 (0-99); FRAGMENT RBC FLAG 0 (0-99); HEMATOCRIT 28.7 % (40.0-51.0); HEMOGLOBIN 9.4 g/dL (13.7-17.5); LEFT SHIFT FLG 0 (0-99); LIPEMIA HEMOLYSIS FLAG 80 (0-99); MEAN CELL HEMOGLOBIN 33.2 pg (27.9-34.1); MEAN CELL HEMOGLOBIN CONCENTR. 32.8 g/dL (32.4-36.7); MEAN CELL VOLUME 101.4 fL (81.5-99.8); MEAN PLATELET VOLUME 10.4 fL (8.7-11.7); PLATELET CLUMPS FLAG 0 (0-99); PLATELET COUNT 100 10^3/uL (150-400); RED BLOOD CELL COUNT 2.83 10^6/uL (4.40-6.38)
[2017-06-18 05:16] LABS: ANION GAP 5 mEq/L (8-16); CALCIUM 8.5 mg/dL (8.5-10.4); CARBON DIOXIDE 25 mEq/l (22-31); CHLORIDE 103 mEq/L (97-110); CREATININE 0.7 mg/dL (0.7-1.3); GLOMERULAR FILTRATION RATE > 60; GLUCOSE 87 mg/dL (70-100); MAGNESIUM 1.5 mg/dL (1.6-2.3); POTASSIUM 4.1 mEq/L (3.5-5.2); SODIUM 133 mEq/L (134-144)
[2017-06-18] MEDS: ACETAMINOPHEN 500 MG TAB PO SCH ×2 (06:16→13:23)
--- NOTE | 2017-06-18 08:00 | TRAUMAPN ---
- Problem/Surgery Performed (1) Ribs, multiple fractures Assessment/Plan: 06/16 Pain controlled. Chest x-ray pending. IS to 199906/18/2017 Assessment: Doing well from pulmonary stand point. IS 1999 Nutritional input appears to be good. No stool yet Plan: TRansfer to rehab Will add Miralax Qualifiers: Encounter type: initial encounter Fracture type: closed Laterality: right Fracture healing: F Qualified Code(s): S22.41XA - Multiple fractures of ribs, right side, initial encounter for closed fracture (2) Multiple fractures of ribs of left side Assessment/Plan: 06/16 theses are old kaitlynn fractures ant not currently an issue Qualifiers: Encounter type: E Fracture type: F Fracture healing: F (3) Failure to thrive Assessment/Plan: 06/16 Pre-albumin 12 and total lymphocytes 1200 - both consistent with moderate to severe nutritional deficiency. will calorie count and supplements Qualifiers: Failure to thrive age range: in adult Qualified Code(s): R62.7 - Adult failure to thrive (5) Multiple wounds of skin Assessment/Plan: 06/16 has multiple skin wounds of varying ages ( skin tears/abrasions). They are being debrided and treated with topical antibiotics. Adequate nutrition important! 06/18 Per nursing, the wounds are in different stages of healing and are doing well. (6) Fracture of greater trochanter of right femur Assessment/Plan: 06/16 This is a chronic problem that Dr. Sim is following. He will be notified. Weight bearing will not be a problem with this issue. 06/[address] Sim and he is aware of patient. Qualifiers: Encounter type: E Fracture type: F Open fracture type: O Fracture alignment: F Fracture healing: F Assessment/Plan: 06/16 Overall he is doing well. 06/18 Overall continuing to improve Subjective: No complaints. Notes that he has not moved his bowels. Objective: Vital Signs Temp Pulse Resp BP Pulse Ox 36.4 C 62 20 114/70 89 L 06/18/17 04:00 06/18/17 04:00 06/18/17 04:00 06/18/17 04:00 06/18/17 04:00 Laboratory Results 06/18/17 04:27 06/18/17 04:27 06/17/17 06/18/17 06/19/17 05:59 05:59 05:59 Intake Total 250 475 Output Total 225 400 Balance 25 75 PT 12.9 SEC (12.0-15.0) 06/15/17 14:55 INR 0.98 (0.83-1.16) 06/15/17 14:55 Physical Exam - Physical Exam General Appearance: WD/WN, alert, no apparent distress Neck: non-tender, full range of motion, supple, normal inspection Respiratory: lungs clear, normal breath sounds Cardiac/Chest: regular rate, rhythm Abdomen: normal bowel sounds, non-tender, soft Male Genitalia: deferred Rectal: deferred Back: Normal inspection Skin: normal color Extremities: normal range of motion, non-tender Neuro/Psych: no motor/sensory deficits, alert, normal mood/affect Time Spent w/Patient (minutes): 25
[2017-06-18] MEDS ORDERED: MAGNESIUM SULF 1 GM/DEXTROSE 100 ML IV ONE (08:07)
[2017-06-18 08:18] VITALS: BP 115/75; PULSE 68; RESP 14; TEMP 98.1
[2017-06-18] MEDS: LIDOCAINE 5% 1 EA PATCH TD SCH (08:44)
[2017-06-18] MEDS: BACITRACIN ZINC 14.2 GM OINTTUBE TP SCH (08:45)
[2017-06-18] MEDS ORDERED: THIAMINE HCL 100 MG TAB PO SCH (09:00)
[2017-06-18] MEDS ORDERED: POLYETHYLENE GLYCOL 3350 17 GM PKT PO SCH (09:00)
[2017-06-18] MEDS ORDERED: ENOXAPARIN 40 MG/0.4 ML SYR SC SCH (09:00)
[2017-06-18] MEDS ORDERED: ENOXAPARIN 30 MG/0.3 ML SYR SC SCH (09:00)
[2017-06-18] MEDS ORDERED: MAGNESIUM HYDROXIDE 30 ML UDCUP PO ONE (10:24)
--- NOTE | 2017-06-18 10:52 | PDIAF ---
- Diagnosis Diagnosis: multiple rib fractures, Code Status: Limited Resuscitation - Medication Management Discharge Medications: Medications to Continue on Transfer Ascorbic Acid [Vitamin C 500 mg (*)] 500 mg PO HS 09/18/15 [Last Taken 2 Weeks Ago] Calcium Carbonate [Oyster Shell Calcium 500 mg (*)] 500 mg PO HS 09/18/15 [Last Taken 2 Weeks Ago] Cholecalciferol Vit D3 [Vitamin D3 (*)] 1,000 units PO HS 09/18/15 [Last Taken 2 Weeks Ago] Cyanocobalamin [Vitamin B12 (*)] 100 mcg PO HS 09/18/15 [Last Taken 2 Weeks Ago] Gabapentin [Neurontin 100 MG (*)] 300 mg PO HS 09/18/15 [Last Taken 2 Weeks Ago] Lisinopril [Zestril 40 mg (*)] 40 mg PO HS 09/18/15 [Last Taken 2 Weeks Ago] Metoprolol Succinate Xr [Toprol Xl 100 mg (*)] 100 mg PO HS 09/18/15 [Last Taken 2 Weeks Ago] Omeprazole [Prilosec] 40 mg PO HS 09/18/15 [Last Taken 2 Weeks Ago] amLODIPine BESYLATE [Norvasc 5 mg (*)] 5 mg PO HS 09/18/15 [Last Taken 2 Weeks Ago] Bacitracin Zinc [Bacitracin Ointment Tube] 1 macie TP BID #0 oint 06/18/17 [Last Taken Unknown] Enoxaparin [Lovenox 40 MG (*)] 40 mg SC DAILY #0 syr 06/18/17 [Last Taken Unknown] HYDROmorphone HCL [Dilaudid] 0.2 - 0.4 mg IVP Q1 PRN #0 syr 06/18/17 [Last Taken Unknown] Lidocaine 5% [Lidoderm 5% Patch (*)] 1 ea TD DAILY #0 patch 06/18/17 [Last Taken Unknown] Ondansetron HCl Pf [Zofran 4 mg Inj (*)] 4 mg IVP Q4HRS PRN #0 vial 06/18/17 [ Last Taken Unknown] Patch Removal 1 ea TD DAILY21 #0 patch 06/18/17 [Last Taken Unknown] Polyethylene Glycol 3350 [Miralax 17 gm (*)] 34 gm PO BID #0 pkt 06/18/17 [Last Taken Unknown] Thiamine HCl [Vitamin B-1] 100 mg PO DAILY #0 tab 06/18/17 [Last Taken Unknown] oxyCODONE IR [Oxycodone Ir (*)] 5 - 10 mg PO Q4 PRN #0 tab 06/18/17 [Last Taken Unknown] Discharge Medications: Refer to the Discharge Home Medication list for PRN reason. - Orders Services needed: Registered Nurse, Certified Billet Bed Operator, Physical Therapy, Occupational Therapy Diet Recommendation: no restrictions on diet Diet Texture: Regular Texture Diet (patient requires 2 servings of wine daily. ) Weigh Patient: weekly Verduzco: Not applicable Additional: must have 2 servings of wine daily - Follow Up Care Current Providers and Referrals: Bertha Moulton MD [Primary Care Provider] -
[2017-06-18] MEDS ORDERED: WHITE WINE 120 ML BOTTLE PO PRN (11:17)
--- NOTE | 2017-06-18 17:21 | PDDCSUM ---
Discharge Summary Discharge Summary: Date of Admission: [] Date of Discharge: [] Discharge Diagnoses: [] Admission Diagnoses: [] Consultants: [] Hospital Course: [] Physical Exam: [] Condition: [] Discharged to: [] Pertinent tests/labs/imaging: [] Medications: [] Special instructions: [] Follow up: [] [</>] 30 minutes of total time was spent on counseling and coordination of care for this patient's discharge.
[2017-06-19] MEDS ORDERED: WHITE WINE 120 ML BOTTLE PO SCH (09:00)
[2017-06-19] MEDS ORDERED: MULTIVITAMINS W-MINERALS 1 EACH TAB PO SCH (09:00)
== END 2017-06-18 18:26 | DRG 183 ==
LOC: OBSVTOIN 17:14 → F3E 17:23
PROVIDERS: ADMIT Surgery; ATTEND Surgery
DX: S22.41XA Multiple fractures of ribs, right side, initial encounter for closed fracture (principal); S22.42XA Multiple fractures of ribs, left side, initial encounter for closed fracture; S72.114A Nondisplaced fracture of greater trochanter of right femur, initial encounter for closed fracture; F10.239 Alcohol dependence with withdrawal, unspecified; E43 Unspecified severe protein-calorie malnutrition; L89.151 Pressure ulcer of sacral region, stage 1; R31.9 Hematuria, unspecified; I10 Essential (primary) hypertension; E11.40 Type 2 diabetes mellitus with diabetic neuropathy, unspecified; F17.200 Nicotine dependence, unspecified, uncomplicated; J44.9 Chronic obstructive pulmonary disease, unspecified; R27.0 Ataxia, unspecified
CPT/HCPCS: 84134-90; 92523-GN; 97116-GP; 97162-GP; 97166-GO; 97530-GO; 97530-GP; 97535-GO; G0480; G8978-GP-CL; G8979-GP-CJ; G8987-GO-CK; G8988-GO-CI; G9165-GN-CH; G9166-GN-CH; G9167-GN-CH; J1170; J1650; J1885; J2060; J3411; J3475; Q9967

== ENCOUNTER 2017-08-08 09:35 | Emergency (ER) | payer OTHER, MEDICARE ==
[2017-08-08 09:49] VITALS: RESP 18
--- NOTE | 2017-08-08 11:48 | EDPHY ---
H & P Stated Complaint: Fell Fri night;asst off floor Sat;not eating,out of meds; family concern Time Seen by Provider: 08/08/17 10:21 HPI/ROS: CHIEF COMPLAINT: Fall; may need placement in assisted living per daughter HISTORY OF PRESENT ILLNESS: The patient is a 77 y/o male who is here because " my daughter is anxious I may have broken something" after a fall a couple of nights ago. He doesn't know why he fell, but thinks it may be related to his daily 1/2 bottle of wine use; he denies symptoms of alcohol withdrawal if he stops drinking. He denies any injuries or pain from the fall and normally uses a walker to get around. He denies striking his head or losing consciousness. He has chronic right hip and leg pain, but denies acute complaints. No headache, chest pain, dyspnea, fever, acute extremity pain. He was at [facility] for two months because he's "just been frail." He left that facility 2 weeks ago to live at home alone because he felt the "therapy was annoying and didn't do much good." He's fallen once since returning home. He feels safe at home, but his daughter thinks he's too frail to live alone and wants him to go back to [facility]. He doesn't like their food, but would go back for a week or two if needed to please his daughter. He wants her to be part of the decision regarding his discharge. He is enrolling in the [facility]. REVIEW OF SYSTEMS: A 10 point review of systems was performed and is negative with the exception of the elements mentioned in the history of present illness. Past medical history: Chronic right hip and leg pain Past surgical history: noncontributory Family history: noncontributory Social history: Lives alone. Drinks half bottle of wine nightly. Smokes 4-5 cigarettes daily since age 17. Retired, worked in media. General Appearance: Alert, no acute distress. Eyes: Pupils equal and round, no conjunctival injection, no discharge. ENT, Mouth: Mucous membranes are moist, no oropharyngeal erythema or edema. Neck: No lymphadenopathy, supple. Respiratory: Lungs are clear to auscultation; no wheezes, rales, or rhonchi. Cardiovascular: Regular rate and rhythm; no murmur, rub, or gallop. Gastrointestinal: Abdomen is soft and non tender, no masses or organomegaly, bowel sounds normal. Skin: Warm and dry, no rashes, normal color. Firm, mobile, fleshy mass at base of thoracic spine with overlying scab, no drainage, no fluctuance, no tenderness. Back: Nontender to palpation over the thoracolumbar spine. Extremities: Multiple old bruises and abrasions to extremities. No lower extremity edema, no calf tenderness or swelling. FAROM both hips, knees. Neurological: Alert and oriented. Moving all four extremities easily and equally. Psychiatric: Normal affect. - Personal History Tetanus Vaccine Date: 03/2017 - Medical/Surgical History Hx Asthma: No Hx Chronic Respiratory Disease: No Hx Diabetes: No Hx Cardiac Disease: No Hx Renal Disease: No Hx Cirrhosis: No Hx Alcoholism: Yes Hx HIV/AIDS: No Hx Splenectomy or Spleen Trauma: No Other PMH: PMH: HTN. Fx hip - Social History Smoking Status: Current every day smoker Constitutional: Initial Vital Signs Temperature (C) 36.5 C 08/08/17 09:43 Heart Rate 78 08/08/17 09:43 Respiratory Rate 18 08/08/17 09:43 Blood Pressure 117/72 08/08/17 09:43 O2 Sat (%) 95 08/08/17 09:43 O2 Delivery Mode Room Air Allergies/Adverse Reactions: No Allergies [NKA] Allergy (Verified 08/08/17 09:43) Home Medications: Medication Instructions Recorded Gabapentin [Neurontin 100 MG (*)] 300 mg PO HS 09/18/15 Lisinopril [Zestril 40 mg (*)] 40 mg PO HS 09/18/15 Metoprolol Succinate Xr [Toprol Xl 100 mg PO HS 09/18/15 100 mg (*)] Omeprazole [Prilosec] 40 mg PO HS 09/18/15 amLODIPine BESYLATE [Norvasc 5 mg 5 mg PO HS 09/18/15 (*)] Medical Decision Making ED Course/Re-evaluation: Case management involved in care and discussion with patient and daughter regarding discharge options. Arrangements have been made for patient to return to [facility]. I have not found evidence of acute injury related to falls, but note that this patient is a fall risk. He reports daily alcohol use, denies withdrawal symptoms when not drinking. His goal is to be able to return home and live independently, but he has agreed to a stay at [facility]. He is being transported from ED to [facility] with an admission order written by me. Addendum: The day after this emergency department encounter I was notified by case management that [facility] refused this patient (although they had initially agreed). He was reportedly transported from [facility] to his home by his daughter. I have no further details. Differential Diagnosis: I considered a ddx of alcohol abuse and its sequelae, alcohol withdrawal, dementia, stroke. Departure - Departure Disposition: Home, Routine, Self-Care Clinical Impression: Frequent falls Condition: Good Instructions: Fall Prevention for Older Adults (ED) Additional Instructions: Follow up with [facility]. Referrals: Bertha Moulton MD [Primary Care Provider] - As per Instructions Report Scribed for: Sahra Ingram Report Scribed by: Alexus Null Date of Report: 08/08/17 Time of Report: 11:48 Physician Review and Approval Statement: 08/11/17 06:51 Portions of this chart were entered by a medical records analyst. I personally performed the HPI, PE, MDM. I have reviewed and agree with the documentation.
[2017-08-08 13:38] VITALS: BP 103/68; PULSE 100; TEMP 98.4; O2SAT 92
--- NOTE | 2017-08-08 13:52 | ASMTCMCOM ---
CM Note CM Note Notes: Patient brought to the ED by his daughter, Yasmin ([phone]) for evaluation after he had a fall this past Tuesday night. Patient lives in Independent Living at [facility] and was recently discharged from [facility] on 07/27/17. Patient had recently been admitted to [facility] for a hip fracture from 06/15-06/18/17. Per Yasmin, patient has been having falls at home, not eating well, not able to care for himself adequately, and she thinks patient would benefit from additional SNF rehab. Patient is an alcoholic and Yasmin states he "just drink 1.5 bottles of wine a day and stays in bed. He hasn't filled his prescriptions and the home help agency I set up can't get him to answer the phone." Yasmin says she set patient up with the [facility] program and services but they don't start until 08/14/17. She is also trying to get patient evaluated by [facility] for eventual placement into a LTC bed at a retirement, if patient ultimately is unable to transition back home. Spoke with Lisha at [facility] and she says they are able and willing to take patient back at their facility today. Plan is to discharge patient from ED to [facility] for additional rehab. Patient and Yasmin hope to eventually have additional home help services be set up once he discharges from again. Referral and discharge orders faxed, received and admission confirmed by Lisha at . Lisha arranged wheelchair transport through [place] from [facility]. Yasmin notified of patient's discharge and transport to . Date Signed: 08/08/2017 01:52 PM Electronically Signed By:Chrissy Tomlinson RN
--- NOTE | 2017-08-08 16:58 | ASMTCMCOM ---
CM Note CM Note Notes: After patient had discharged to [facility], this CM received a call from Dean at [facility] and she stated that they had just become aware that the patient wasn't compliant with the facility's rules during his last stay (06/18-07/27/17) so actually they would not be able to accept him. At that time the patient had already arrived at via [facility] (which was arranged by Lisha at ). Dean stated that she would be sending the patient back to the ED for possible placement to [place]. This CM stated that since the patient had been accepted by 's admission department (referral and acceptance coordinated with Lisha) and discharged from the ED under that safe discharge plan, it was now their responsibility to either find a different placement for the patient or other safe discharge from their facility's care. Dean was going to speak to 's software administrator, Olinda, and this CM alerted [facility] [employer] Bing. Bing states she called and spoke with Dean who reported that the facility ended up having the patient transported back home and they notified patient's daughter Yasmin. Date Signed: 08/08/2017 04:58 PM Electronically Signed By:Chrissy Tomlinson RN
== END 2017-08-08 13:43 | disposition home or self-care (01) ==
DX: Z04.3 Encounter for examination and observation following other accident (principal); F17.210 Nicotine dependence, cigarettes, uncomplicated; I10 Essential (primary) hypertension; W18.30XA Fall on same level, unspecified, initial encounter

== ENCOUNTER 2017-08-18 11:06 | Inpatient (IN) | payer OTHER, MEDICARE ==
--- NOTE | 2017-08-18 12:29 | EDPHY ---
H & P Time Seen by Provider: 08/18/17 12:29 HPI/ROS: Chief complaint. Fall HPI. 77-year-old male presents emergency department with right chest pain after fall yesterday. He lost his balance. He drinks regularly and describes himself as alcoholic. He lives by himself and has had increasing falls over the last several weeks. He has had falls with previous rib fractures. He denies striking his head or losing consciousness. Does not have neck pain. No back pain. It hurts to take a deep breath and to twist and move. ROS Constitutional. no fever/chills, no weakness Eyes. no problems with vision ENT. no sore throat, no nasal drainage Cardiovascular. Right sided chest wall pain Respiratory. no shortness of breath, no cough Abdominal. no abdominal pain, no nausea/vomiting, no diarrhea . no problems urinating MS. no calf pain/swelling, no neck/back pain, no joint pain Skin. no rash Lymph. no swollen glands Neuro. no headache, no dizziness, no difficulty walking or with speech Past Medical/Surgical History: Past medical history significant for hypertension and alcoholism Social History: Single, daily smoker, recent alcohol Smoking Status: Current every day smoker Physical Exam: General Appearance: Alert, well-developed male mild distress vital signs are stable Eyes: Pupils equal and round no pallor or injection. ENT, Mouth: Mucous membranes are moist. Respiratory: There are no retractions, lungs are clear to auscultation. Cardiovascular: Regular rate and rhythm. Gastrointestinal: Abdomen is soft and nontender, no masses, bowel sounds normal. Neurological: Awake and alert, sensory and motor exams grossly normal. Skin: Warm and dry, no rashes. Musculoskeletal: Neck is supple nontender. TLS spine nontender. Right chest wall tender to palpation Extremities symmetrical, full range of motion. Psychiatric: Patient is oriented X 3, there is no agitation. Constitutional: Initial Vital Signs Temperature (C) 36.6 C 08/18/17 11:12 Heart Rate 92 08/18/17 11:12 Respiratory Rate 18 08/18/17 11:12 Blood Pressure 100/72 08/18/17 11:12 O2 Sat (%) 91 L 08/18/17 11:12 O2 Delivery Mode Nasal Cannula O2 (L/minute) 2 Allergies/Adverse Reactions: No Allergies [NKA] Allergy (Verified 08/18/17 11:08) Home Medications: Medication Instructions Recorded NK [No Known Home Meds] 08/18/17 Medical Decision Making - Diagnostics Imaging Results: Imaging Impressions Chest X-Ray 08/18/17 12:40 Impression: At least 4 right-sided lateral rib fractures identified, associated with [id number] right pleural effusion, new. Dedicated rib radiographs may be of benefit in additional rib fracture characterization. No pneumothorax identified.. Chest x-ray interpreted by me shows for right-sided rib fractures. No pneumothorax. Small right pleural effusion Procedures: IV normal saline, monitor ED Course/Re-evaluation: On re-evaluation patient is stable. The patient and I discussed treatment plan including recommendation for admission. He expresses understanding and agreement I consulted and discussed case with Dr. Capone, surgeon, who agrees to the admission Differential Diagnosis: I have considered rib fractures, flail chest common pneumothorax, alcohol intoxication - Data Points Laboratory Results: Laboratory Results 08/18/17 12:33 08/18/17 12:33 08/18/17 08/18/17 08/18/17 13:43 12:33 12:33 WBC RBC Hgb Hct MCV MCH MCHC RDW Plt Count MPV Neut % (Auto) Lymph % (Auto) [place] % (Auto) Eos % (Auto) Baso % (Auto) Nucleat RBC Rel Count Absolute Neuts (auto) Absolute Lymphs (auto) Absolute Monos (auto) Absolute Eos (auto) Absolute Basos (auto) Absolute Nucleated RBC Immature Gran % Immature Gran # PT 13.9 SEC SEC (12.0-15.0) INR 1.08 (0.83-1.16) APTT 26.0 SEC SEC (23.0-38.0) Sodium 134 mEq/L mEq/L (134-144) Potassium 4.3 mEq/L mEq/L (3.5-5.2) Chloride 96 mEq/L L mEq/L (97-110) Carbon Dioxide 23 mEq/l mEq/l (22-31) Anion Gap 15 mEq/L mEq/L (8-16) BUN 17 mg/dL mg/dL (7-23) Creatinine 0.9 mg/dL mg/dL (0.7-1.3) Estimated GFR > 60 Glucose 126 mg/dL H mg/dL (70-100) Calcium 9.2 mg/dL mg/dL (8.5-10.4) Urine Color DAISHA Urine Appearance HAZY Urine pH 5.0 (5.0-7.5) Ur Specific [place] 1.021 (1.002-1.030) Urine Protein NEGATIVE (NEGATIVE) Urine Ketones NEGATIVE (NEGATIVE) Urine Blood NEGATIVE (NEGATIVE) Urine Nitrate NEGATIVE (NEGATIVE) Urine Bilirubin NEGATIVE (NEGATIVE) Urine Urobilinogen 2.0 EU H EU (0.2-1.0) Ur Leukocyte Esterase NEGATIVE (NEGATIVE) Urine RBC 1-3 /hpf /hpf (0-3) Urine WBC 10-15 /hpf H /hpf (0-3) Ur Epithelial Cells TRACE /lpf /lpf (NONE-1+) Urine Bacteria TRACE /hpf H /hpf (NONE SEEN) Hyaline Casts 15-25 /lpf H /lpf (0-1) Urine Mucus 3+ /lpf H /lpf (NONE-1+) Urine Glucose NEGATIVE (NEGATIVE) Ethyl Alcohol 102 mg/dL H mg/dL (0-10) 08/18/17 12:33 WBC 8.34 10^3/uL 10^3/uL (3.80-9.50) RBC 3.51 10^6/uL L 10^6/uL (4.40-6.38) Hgb 10.6 g/dL L g/dL (13.7-17.5) Hct 32.2 % L % (40.0-51.0) MCV 91.7 fL fL (81.5-99.8) MCH 30.2 pg pg (27.9-34.1) MCHC 32.9 g/dL g/dL (32.4-36.7) RDW 18.9 % H % (11.5-15.2) Plt Count 149 10^3/uL L 10^3/uL (150-400) MPV 9.0 fL fL (8.7-11.7) Neut % (Auto) 82.6 % H % (39.3-74.2) Lymph % (Auto) 7.3 % L % (15.0-45.0) [place] % (Auto) 9.5 % % (4.5-13.0) Eos % (Auto) 0.0 % L % (0.6-7.6) Baso % (Auto) 0.1 % L % (0.3-1.7) Nucleat RBC Rel Count 0.0 % % (0.0-0.2) Absolute Neuts (auto) 6.89 10^3/uL H 10^3/uL (1.70-6.50) Absolute Lymphs (auto) 0.61 10^3/uL L 10^3/uL (1.00-3.00) Absolute Monos (auto) 0.79 10^3/uL 10^3/uL (0.30-0.80) Absolute Eos (auto) 0.00 10^3/uL L 10^3/uL (0.03-0.40) Absolute Basos (auto) 0.01 10^3/uL L 10^3/uL (0.02-0.10) Absolute Nucleated RBC 0.00 10^3/uL 10^3/uL (0-0.01) Immature Gran % 0.5 % % (0.0-1.1) Immature Gran # 0.04 10^3/uL 10^3/uL (0.00-0.10) PT INR APTT Sodium Potassium Chloride Carbon Dioxide Anion Gap BUN Creatinine Estimated GFR Glucose Calcium Urine Color Urine Appearance Urine pH Ur Specific [place] Urine Protein Urine Ketones Urine Blood Urine Nitrate Urine Bilirubin Urine Urobilinogen Ur Leukocyte Esterase Urine RBC Urine WBC Ur Epithelial Cells Urine Bacteria Hyaline Casts Urine Mucus Urine Glucose Ethyl Alcohol Medications Given: Discontinued Medications Sodium Chloride (Ns) 1,000 mls @ 0 mls/hr IV ONCE ONE; Wide Open PRN Reason: Protocol Stop: 08/18/17 12:41 Last Admin: 08/18/17 13:08 Dose: 1,000 mls Departure - Departure Disposition: [facility] Inpatient Acute Clinical Impression: Multiple rib fractures involving four or more ribs Condition: Fair Referrals: Camilla Tinoco MD [Primary Care Provider] - As per Instructions
[2017-08-18] MEDS ORDERED: NS 1,000 ML IV ONE (12:40)
[2017-08-18 12:47] LABS: % IMMATURE GRANULYOCYTES 0.5 % (0.0-1.1); ABSOLUTE IMMATURE GRANULOCYTES 0.04 10^3/uL (0.00-0.10); ADD DIFF? NO; ADD MORPH? NO; ADD SCAN? NO; ATYPICAL LYMPHOCYTE FLAG 0 (0-99); FRAGMENT RBC FLAG 0 (0-99); HEMATOCRIT 32.2 % (40.0-51.0); HEMOGLOBIN 10.6 g/dL (13.7-17.5); LEFT SHIFT FLG 0 (0-99); LIPEMIA HEMOLYSIS FLAG 80 (0-99); MEAN CELL HEMOGLOBIN 30.2 pg (27.9-34.1); MEAN CELL HEMOGLOBIN CONCENTR. 32.9 g/dL (32.4-36.7); MEAN CELL VOLUME 91.7 fL (81.5-99.8); PLATELET CLUMPS FLAG 0 (0-99); PLATELET COUNT 149 10^3/uL (150-400); RED BLOOD CELL COUNT 3.51 10^6/uL (4.40-6.38); RED CELL DISTRIBUTION WIDTH 18.9 % (11.5-15.2)
[2017-08-18 13:02] LABS: ANION GAP 15 mEq/L (8-16); CALCIUM 9.2 mg/dL (8.5-10.4); CARBON DIOXIDE 23 mEq/l (22-31); CHLORIDE 96 mEq/L (97-110); CREATININE 0.9 mg/dL (0.7-1.3); ETHANOL SERUM 102 mg/dL (0-10); GLOMERULAR FILTRATION RATE > 60; GLUCOSE 126 mg/dL (70-100); POTASSIUM 4.3 mEq/L (3.5-5.2); SODIUM 134 mEq/L (134-144)
[2017-08-18 13:06] LABS: INR 1.08 (0.83-1.16); PROTIME(PATIENT) 13.9 SEC (12.0-15.0)
[2017-08-18 14:04] LABS: COLOR AMBER; LEUKOCYTE ESTERASE,URINE NEGATIVE (NEGATIVE); NITRITE,URINE NEGATIVE (NEGATIVE)
[2017-08-18 14:08] LABS: BACTERIA TRACE /hpf (NONE SEEN); HYALINE CASTS 15-25 /lpf (0-1); MUCUS 3+ /lpf (NONE-1+)
--- NOTE | 2017-08-18 14:56 | ASMTCMCOM ---
CM Note CM Note Notes: ER Case Management: This is a second, recent visit to the ER for this patient who resides independently at [facility] with private pay visiting nurse services. Patient is accompanied by his daughter Yasmin who is very supportive. Yasmin explains that patient was seen at home this morning by his visiting nurse who recommended that patient go to the ER due to concerns of chest congestion/possible PNA. Yasmin informs me that patient has not been doing well at home and has recently been accepted for admission to [facility] on Tuesday08/22/17. Per chart review and discussion with Yasmin, patient is an alcoholic who has no intention of stopping his drinking, but does admit to needing more help with his ADL's. He has also had falls at home. Yasmin contacted Kenney at [facility] prior to coming to the hospital this morning to inquire about potential "early" admission to . ) [phone] and confirmed plans for admission on Tuesday. Kenney tells me that he will have a bed available for the patient tomorrow, pending ACMI ([facility]) and the pending ULTC 100. I have informed Yasmin of this and assured her that CM will follow with D/C planning if patient is admitted. If not admitted, Yasmin knows she can follow up with Kenney tomorrow regarding a potential early admission. Date Signed: 08/18/2017 02:55 PM Electronically Signed By:Mary Arnold RN
--- NOTE | 2017-08-18 17:01 | SOAPPROG ---
SOAP Progress Note Assessment/Plan: Assessment: 77-year-old male with recent fall and for right rib fractures and history of multiple falls and rib fractures Plan: 08/18/17 17:00 Objective: Vital Signs Temp Pulse Resp BP Pulse Ox 36.6 C 89 16 136/85 H 95 08/18/17 11:12 08/18/17 16:54 08/18/17 16:54 08/18/17 16:54 08/18/17 16:54 PT 13.9 SEC (12.0-15.0) 08/18/17 12:33 INR 1.08 (0.83-1.16) 08/18/17 12:33 ICD10 Worksheet Patient Problems: Problems Problem Status Onset Multiple rib fractures involving four or more ribs Acute Elevated CK Acute Failure to thrive Acute Fracture of greater trochanter of right femur Acute Multiple fractures of ribs of left side Acute Multiple wounds of skin Acute Osteomyelitis Acute Ribs, multiple fractures Acute Wound of skin Acute
[2017-08-18] MEDS ORDERED: WHITE WINE 120 ML BOTTLE PO SCH (18:00)
[2017-08-18] MEDS ORDERED: ZOLPIDEM TARTRATE 5 MG TAB PO PRN (19:08)
[2017-08-18] MEDS ORDERED: ONDANSETRON 4 MG/2 ML VIAL IVP PRN (19:08)
[2017-08-18] MEDS ORDERED: D5W 1/2 NS 1,000 ML IV SCH (19:15)
--- NOTE | 2017-08-18 22:08 | GHP ---
[f rep st] PREOP HISTORY AND PHYSICAL DATE OF ADMISSION: 08/18/2017 HISTORY OF PRESENT ILLNESS: Patient is a 77-year-old male, who fell at home sustaining 4 right rib f ractures. He denies any loss of consciousness, and he felt like he tripped. Did not blackout or was not dizzy. He has had multiple falls and multiple admissions to the hospital and the ER for falls a nd trauma including other rib fractures. He does drink regularly and describes himself as an alcohol ic. He has no interest in stopping drinking. He specifically denies any loss of consciousness, any head pain, neck pain, or back pain. PAST MEDICAL HISTORY: Includes hypertension, alcoholism, multiple rib fractures. SOCIAL HISTORY: He is a regular smoker. REVIEW OF SYSTEMS: Reveals no new problems on a full 10-point review of systems. ALLERGIES: None. MEDICATIONS: None. PHYSICAL EXAMINATION: GENERAL: Reveals an alert 77-year-old male, who is in no acute distress. Com plains of some right lateral chest pain. He is afebrile. HEAD and NECK: Reveals his pupils to be n ormal. TMs are clear. Neck is supple. There are no oral lesions. There is no adenopathy and no ca rotid bruits. CHEST: Symmetrical breath sounds. He is tender over the right lateral chest wall. C ARDIAC: Regular rhythm. ABDOMEN: Soft and nontender without organomegaly. GENITALIA: Normal. EX TREMITIES: Benign with full pulses and full range of motion. NEUROLOGIC: Symmetrical and physiolog ic. SKIN: Reveals no major lesions or abnormalities. IMPRESSION: Blunt chest trauma with 4 minimally displaced rib fractures without pneumothorax, but po ssible early effusion or hemothorax. PLAN: Admit for observation. He may possibly need a chest tube if he continues to develop a signifi cant hemothorax on the right. Also, needs a medical consultation for his repeated falling. He is an alcoholic, but does not want to stop drinking, and we will allow him to have wine with his dinner. Evaluation in the ER, a CT scan reveals a small 4 mm subdural . /[id number]/MODL
[2017-08-19 03:18] VITALS: TEMP 98.1
[2017-08-19 04:56] LABS: % IMMATURE GRANULYOCYTES 0.3 % (0.0-1.1); ABSOLUTE IMMATURE GRANULOCYTES 0.02 10^3/uL (0.00-0.10); ADD DIFF? NO; ADD MORPH? NO; ADD SCAN? NO; ATYPICAL LYMPHOCYTE FLAG 10 (0-99); FRAGMENT RBC FLAG 0 (0-99); HEMATOCRIT 27.8 % (40.0-51.0); HEMOGLOBIN 9.1 g/dL (13.7-17.5); LEFT SHIFT FLG 0 (0-99); LIPEMIA HEMOLYSIS FLAG 80 (0-99); MEAN CELL HEMOGLOBIN 30.2 pg (27.9-34.1); MEAN CELL HEMOGLOBIN CONCENTR. 32.7 g/dL (32.4-36.7); MEAN CELL VOLUME 92.4 fL (81.5-99.8); MEAN PLATELET VOLUME 9.7 fL (8.7-11.7); PLATELET CLUMPS FLAG 0 (0-99); PLATELET COUNT 128 10^3/uL (150-400); RED BLOOD CELL COUNT 3.01 10^6/uL (4.40-6.38); RED CELL DISTRIBUTION WIDTH 19.2 % (11.5-15.2)
[2017-08-19 05:05] LABS: APTT 27.8 SEC (23.0-38.0); INR 1.1 (0.83-1.16); PROTIME(PATIENT) 14.1 SEC (12.0-15.0)
[2017-08-19 05:25] LABS: ALBUMIN 2.7 g/dL (3.5-5.0); BILIRUBIN,TOTAL 0.9 mg/dL (0.1-1.4); BILIRUBIN-CONJUGATED 0.3 mg/dL (0.0-0.5); BILIRUBIN-UNCONJUGATED 0.6 mg/dL (0.0-1.1)
[2017-08-19 07:51] VITALS: RESP 16
--- NOTE | 2017-08-19 11:09 | TRAUMAPN ---
Assessment/Plan: Seven 7-year-old male status post fall with small subdural Tertiary exam Neuro: Nonfocal pain controlled. Neurosurgery has reviewed images, patient does not want intervention for known cervical spine stenosis Pulm: Stable on room air CV: Hemodynamically stable Abdomen: Soft nondistended nontender Renal: Voiding Heme: Stable Id: Afebrile Ortho: No fractures Dispo: Home once cleared Subjective: Doing well no complaints Objective: Vital Signs Temp Pulse Resp BP Pulse Ox 36.7 C 93 16 146/93 H 96 08/19/17 03:18 08/19/17 07:51 08/19/17 07:51 08/19/17 07:51 08/19/17 07:51 Laboratory Results 08/19/17 04:25 PT 14.1 SEC (12.0-15.0) 08/19/17 04:25 INR 1.10 (0.83-1.16) 08/19/17 04:25
--- NOTE | 2017-08-19 11:15 | TRAUMAPN ---
Assessment/Plan: [age] old male status post fall with for right-sided rib fractures Tertiary exam Neuro: Nonfocal, pain well controlled Pulm: Appears to be stable on room air although is on 2 L at this point. Chest x-ray today shows possible more fluid on the right side but no pneumothorax. No intervention at this time CV: Hemodynamically stable Abdomen: Soft nondistended nontender Renal: Voiding Heme: Stable Id: Afebrile Ortho: Rib fractures as above, no other fractures identified. Dispo: Once cleared by therapy, likely home today. Patient states that he is transitioning living from his home to [place]. Will discuss with case management Subjective: Some right-sided chest pain but otherwise doing well. Wants to go home Objective: Vital Signs Temp Pulse Resp BP Pulse Ox 36.7 C 93 16 146/93 H 96 08/19/17 03:18 08/19/17 07:51 08/19/17 07:51 08/19/17 07:51 08/19/17 07:51 Laboratory Results 08/19/17 04:25 PT 14.1 SEC (12.0-15.0) 08/19/17 04:25 INR 1.10 (0.83-1.16) 08/19/17 04:25
[2017-08-19 11:18] VITALS: BP 135/79; PULSE 89; O2SAT 94
[2017-08-19] MEDS ORDERED: PNEUMOC 13-VAL CONJ-DIP CRM/PF 0.5 ML SYR IM ONE (11:52)
--- NOTE | 2017-08-19 12:41 | PDIAF ---
- Diagnosis Diagnosis: Fall with rib fractures Code Status: Full Code - Medication Management Discharge Medications: Medications to Continue on Transfer NK [No Known Home Meds] 08/18/17 [Last Taken Unknown] Discharge Medications: Refer to the Discharge Home Medication list for PRN reason. - Orders Services needed: Registered Nurse, Physical Therapy, Occupational Therapy Oxygen: 1L at all times Diet Recommendation: no restrictions on diet Diet Texture: Regular Texture Diet - Follow Up Care Current Providers and Referrals: Camilla Tinoco MD [Medical Doctor] - As per Instructions
--- NOTE | 2017-08-19 14:37 | ASMTCMCOM ---
CM Note CM Note Notes: Kenney at [facility] [phone] reports all the paperwork is in from [facility] for pt to d/c today to . Pt medically stable and agreeable to , dghtr will transport at 1500. Orders sent to . Date Signed: 08/19/2017 02:36 PM Electronically Signed By:REGINA Wade
--- NOTE | 2017-08-19 15:55 | ASDISCHSUM ---
Discharge Information Plan Status: Medically Cleared to Leave: Discharge Date:08/19/2017 02:44 PM CM D/C Disposition:[facility] ADT D/C Disposition:Detention Facility Projected Discharge Date:08/19/2017 11:00 AM Transportation at D/C: Discharge Delay Reason: Follow-Up Date:08/19/2017 11:00 AM Discharge Slot: Final Diagnosis: Placement Information Referral Type:*Fci/SNF Referral ID:[id number] Provider Name:Kathy Urban [facility] Address 1:[address] Address 2: City:[place] Selection Factors: State:[place] Patient Contact Information Contact Name:JACKSON Relationship:Daughter Address:[address] Work Phone: City:[place] Alternate Phone: State/Zip Code:[place] [address] Email: Financial Information Financial Class: Primary Plan Desc:MEDICARE INPATIENT Primary Plan Number:[id number] Secondary Plan Desc:[employer]/MDR SUPPLEMENT Secondary Plan Number:[id number] Assessment Information [facility] CM Progress Note CM Note CM Note Notes: ER Case Management: This is a second, recent visit to the ER for this patient who resides independently at [facility] with private pay visiting nurse services. Patient is accompanied by his daughter Yasmin who is very supportive. Yasmin explains that patient was seen at home this morning by his visiting nurse who recommended that patient go to the ER due to concerns of chest congestion/possible PNA. Yasmin informs me that patient has not been doing well at home and has recently been accepted for admission to [facility] on Tuesday08/22/17. Per chart review and discussion with Yasmin, patient is an alcoholic who has no intention of stopping his drinking, but does admit to needing more help with his ADL's. He has also had falls at home. Yasmin contacted Kenney at [facility] prior to coming to the hospital this morning to inquire about potential "early" admission to . ) [phone] and confirmed plans for admission on Tuesday. Kenney tells me that he will have a bed available for the patient tomorrow, pending [facility] ([place]) and the pending [facility]. I have informed Yasmin of this and assured her that CM will follow with D/C planning if patient is admitted. If not admitted, Yasmin knows she can follow up with Kenney tomorrow regarding a potential early admission. Date Signed: 08/18/2017 02:55 PM Electronically Signed By:Mary Arnold RN [facility] CM Progress Note CM Note CM Note Notes: Kenney at [facility] [phone] reports all the paperwork is in from [facility] for pt to d/c today to . Pt medically stable and agreeable to , dghtr will transport at 1500. Orders sent to . Date Signed: 08/19/2017 02:36 PM Electronically Signed By:REGINA Wade Intervention Information
== END 2017-08-19 14:44 | DRG 185 ==
LOC: F3N 17:48
PROVIDERS: ADMIT Surgery; ATTEND Surgery
DX: S22.41XA Multiple fractures of ribs, right side, initial encounter for closed fracture (principal); W19.XXXA Unspecified fall, initial encounter; F10.20 Alcohol dependence, uncomplicated; I10 Essential (primary) hypertension; F17.210 Nicotine dependence, cigarettes, uncomplicated; Z91.81 History of falling
CPT/HCPCS: 92523-GN; 97162-GP; 97166-GO; G0009; G0480; G8978-GP-CJ; G8979-GP-CI; G8987-GO-CJ; G8988-GO-CJ; G8989-GO-CJ; G9168-GN-CH; G9169-GN-CH; G9170-GN-CH